=== PATIENT | female | born 1955 | race Caucasian/White ===

== ENCOUNTER 2019-12-13 11:10 | Inpatient (IN) | payer MEDICARE, OTHER ==
[~2019-12-13] VITALS: Ht 157.5 cm; Wt 65.3 kg
--- OUTSIDE RECORDS SUMMARY | ~2019-12-13 | XMS | Encounter Summary ---
Demographics + + + | Address | [address] | | | [place] [address] | + + + | Home Phone | | + + + | Preferred Language | Unknown | + + + | Marital Status | | + + + | Quaker Affiliation | Unknown | + + + | Race | Unknown | + + + | Ethnic Group | Unknown | + + + Author + + + | Author | [facility] | | | and [place] | + + + | Organization | [facility] | | | and [place] | + + + | Address | Unknown | + + + | Phone | Unavailable | + + + Support + + + + + | Name | Relationship | Address | Phone | + + + + + | Maria E Kong | ECON | [address] | | | | | [place] , [place] | | | | | [address] | | + + + + + | Macario Kong | ECON | [address] | | | | | [place] [address] | | + + + + + Care Team Providers + +------+ + | Care Director Of Sustainable Design Name | Role | Phone | + +------+ + | No, Physician | PCP | Unavailable | + +------+ + Reason for Visit + + + | Reason | Comments | + + + | Follow-up | | + + + Self-referral (Routine) +--------+--------+ + + + + | Status | Reason | Specialty | Diagnoses / | Referred By | Referred To | | | | | Procedures | Contact | Contact | +--------+--------+ + + + + | Closed | | Audiology | Diagnoses | | Judy, | | | | | month | | [facility] Didi | | | | | follow | | [facility] [address] | | | | | up/pt/Regenc | | [address] | | | | | e/no PCP | | [address] | | | | | Procedures | | [place] | | | | | OFFICE VISIT | | [address] Phone: | | | | | REGULAR | | [phone] | | | | | | | Fax: | | | | | | | [phone] | +--------+--------+ + + + + Encounter Details +--------+---------+ + + + | Date | Type | Department | Care Team | Description | +--------+---------+ + + + | 04/26/ | Office | [facility] | Didi Kim MS | Mixed hearing loss, | | 2015 | Visit | AUDIOLOGY AND | [facility] [address] | unilateral (Primary | | | | [facility] | [address] | Dx); Sensorineural | | | | [address] | [place] [address] | hearing loss, | | | | [address] [facility] | [phone] | unilateral | | | | [place] [address] | | | | | | [phone] | | | +--------+---------+ + + + Social History + +-------+ +--------+------+ | Tobacco Use | Types | Packs/Day | Years | Date | | | | | Used | | + +-------+ +--------+------+ | Never Smoker | | | | | + +-------+ +--------+------+ + + +---------+ + | Alcohol Use | Drinks/Week | oz/Week | Comments | + + +---------+ + | Not Asked | 0 Standard drinks | 0.0 | | | | or equivalent | | | + + +---------+ + + + + | Sex Assigned at | Date Recorded | | | | + + + | Not on file | | + + + + + + + | Job Start Date | Occupation | Industry | + + + + | Not on file | Not on file | Not on file | + + + + + + + + | Travel History | Travel Start | Travel End | + + + + + + | No recent travel history available. | + + documented as of this encounter Progress Notes JudyDidi CCC-A - 04/26/2015 3:10 PM PDTReferring Provider: Valentina Physician Lenny Results of Hearing Test: Right ear--Pure tone air and bone conduction testing showed a 35-4 5dB threshold at 250Hz through 8KHz with 10-25dB uyw-mhfc-llbn at 250Hz through 4KHz. Left ear --Pure tone air and bone conduction testing showed a 50-85dB threshold at 250H z through 8KHz. Speech Recognition Thresholds were 30dB in the right ear and 60dB in the left ear. Speech Discrimination Scores were 100% in right ear and 56% in the left ear. Tympanometry showed normal type A tracing in both ears. Impression and Recommendation: A mixed hearing loss in the right ear and a sensory-neural hearing loss in the left ear. Follow-up care with , Sr. Thank you. documented in thi s encounter Plan of Treatment Not on filedocumented as of this encounter Procedures + +--------+ + + + | Procedure Name | Priori | Date/Time | Associated Diagnosis | Comments | | | ty | | | | + +--------+ + + + | DIAGNOSTIC REPORT - | | 04/26/2015 | | | | EXTERNAL SCAN | | 12:00 AM | | | | | | PDT | | | + +--------+ + + + documented in this encounter Visit Diagnoses + + | Diagnosis | + + | Mixed hearing loss, unilateral - Primary | + + | Sensorineural hearing loss, unilateral | + + documented in this encounter"
--- OUTSIDE RECORDS SUMMARY | ~2019-12-13 | XMS | Encounter Summary ---
Demographics + + + | Address | [address] | | | [place] [address] | + + + | Home Phone | | + + + | Preferred Language | Unknown | + + + | Marital Status | | + + + | Evangelical Affiliation | Unknown | + + + | Race | Unknown | + + + | Ethnic Group | Unknown | + + + Author + + + | Author | [facility] | | | and [place] | + + + | Organization | [facility] | | [...] , [place] | | | | | [address] | | + + + + + | Macario Kong | ECON | [address] | | | | | , [place] [address] | | + + + + + Care Team Providers + +------+ + | Care Animal Sticker Name | Role | Phone | + +------+ + | No, Physician | PCP | Unavailable | + +------+ + Encounter Details +--------+ + + + + | Date | Type | Department | Care Team | Description | +--------+ + + + + | 03/23/ | Abstract | [facility] [place] | Rahul Crews MD | | | 2015 | | OTOLARYNGOLOGY [address] | [address] [place] | | | | | [address] | [address] [place], | | | | | [place], [place] | [place] [address] | | | | | [address] | [phone] | | | | | [phone] | | | +--------+ + + + + Social History + +-------+ [...] + + documented as of this encounter Plan of Treatment Not on filedocumented as of this encounter Visit Diagnoses Not on filedocumented in this encounter"
--- OUTSIDE RECORDS SUMMARY | ~2019-12-13 | XMS | Encounter Summary ---
Demographics + + + | Address | [address] | | | [place] [address] | + + + | Home Phone | | + + + | Preferred Language | Unknown | + + + | Marital Status | | + + + | Taoist Affiliation | Unknown | + + + | Race | Unknown | + + + | Ethnic Group | Unknown | + + + Author + + + | Author | [facility] | | | and [place] | + + + | Organization | [facility] | | | and [...] [address] | | | | | [place] | | | | | [address] | | + + + + + | Macario Kong | ECON | [address] | | | | | [place] [address] | | + + + + + Care Team Providers + +------+ + | Care Tandem Operator Name | Role | Phone | + +------+ + | No, Physician | PCP | Unavailable | + +------+ + Reason for Visit + + + | Reason | Comments | + + + | Medication Refill | | + + + Encounter Details +--------+--------+ + + + | Date | Type | Department | Care Team | Description | +--------+--------+ + + + | 12/05/ | Refill | [facility] [place] | Rahul Crews MD | Medication Refill | | 2016 | | OTOLARYNGOLOGY [address] | [address] [facility] | | | | | [address] [facility] [address] | [address] [place], | | | | | [place] | [place] [address] | | | | | [address] | [phone] | | | | | [phone] | | | +--------+--------+ + + + Social History + +-------+ [...]
--- OUTSIDE RECORDS SUMMARY | ~2019-12-13 | XMS | Encounter Summary ---
Demographics + + + | Address | [address] | | | [place] [address] | + + + | Home Phone | | + + + | Preferred Language | Unknown | + + + | Marital Status | | + + + | Quaker Affiliation | Unknown | + + + | Race | Unknown | + + + | Ethnic Group | Unknown | + + + Author + + + | Author | [facility] | | | and [place] | + + + | Organization | [facility] | | [...] [place] | | | | | [address] | | + + + + + | Macario Kong | ECON | [address] | | | | | [place] [address] | | + + + + + Care Team Providers + +------+ + | Care Typing Checker Name | Role | Phone | + [...] Description | +--------+--------+ + + + | 11/19/ | Refill | [facility] [place] | Rahul Crews MD | Medication Refill | | 2015 | | OTOLARYNGOLOGY [address] | [address] [facility] | | | | | [address] [facility] [address] | [address] [place] [place], | | | | | [place] | [place] [address] | | | | | [address] | [phone] | | | | | [phone] | | | +--------+--------+ + + + [...]
--- OUTSIDE RECORDS SUMMARY | ~2019-12-13 | XMS | Encounter Summary ---
Demographics + + + | Address | [address] | | | [place] [address] | + + + | Home Phone | | + + + | Preferred Language | Unknown | + + + | Marital Status | | + + + | Hindu Affiliation | Unknown | + + + | Race | Unknown | + + + | Ethnic Group | Unknown | + + + Author + + + | Author | [facility] | | | and [place] | + + + | Organization | [facility] | | | and [place] | + [...] , [place] | | | | | [address] | | + + + + + | Macario Kong | ECON | [address] | | | | | , [place] [address] | | + + + + + Care Team Providers + +------+ + | Care Junior Designer Name | Role | Phone | + [...] [place], | | | | | [place], [place] | [place] [address] | | | | | [address] | [phone] | | | | | [phone] | | | +--------+ + + + [...]
--- OUTSIDE RECORDS SUMMARY | ~2019-12-13 | XMS | Encounter Summary ---
Demographics + + + | Address | [address] | | | [place] [address] | + + + | Home Phone | | + + + | Preferred Language | Unknown | + + + | Marital Status | | + + + | Catholic Affiliation | Unknown | + + + | Race | Unknown | + + + | Ethnic Group | Unknown | + + + Author + + + | Author | [facility] | | | and [place] | + + + | Organization | [facility] | | | [...] , [place] | | | | | [address] | | + + + + + | Macario Kong | ECON | [address] | | | | | [place] [address] | | + + + + + Care Team Providers + +------+ + | Care Veneer Clipper Helper Name | Role | Phone | + +------+ + | No, Physician | PCP | Unavailable | + +------+ + Reason for Visit + + + | Reason | Comments | + + + | Follow-up | 1 month meniere's | + + + Self-referral (Routine) +--------+--------+ + + + + | Status | Reason | Specialty | Diagnoses / | Referred By | Referred To | | | | | Procedures | Contact | Contact | +--------+--------+ + + + + | Closed | | Otolaryngolog | Diagnoses | | Rahul Mares | | | | y | In St | | EMD [address] | | | | | [facility] | | [address] | | | | | for | | [address] | | | | | Vertigo/daug | | [place], | | | | | hter/[place]BS/no | | [place] [address] | | | | | pcp/Is | | Phone: | | | | | choosing to | | [phone] | | | | | come back | | Fax: | | | | | for | | [phone] | | | | | audiology | | | | | | | since she's | | | | | | | trying to be | | | | | | | seen NOLAN/ | | | | | | | Will call | | | | | | | back with | | | | | | | ins info | | | | | | | Procedures | | | | | | | NEW PATIENT | | | +--------+--------+ + + + + Encounter Details +--------+---------+ + + + | Date | Type | Department | Care Team | Description | +--------+---------+ + + + | 04/26/ | Office | [facility] | Rahul Mares MD | Meniere's disease, | | 2014 | Visit | OTOLARYNGOLOGY [address] | [address] [place] | unspecified (Primary | | | | [address] | [address] [place], | Dx) | | | | [place] | [place] [address] | | | | | [address] | [phone] | | | | | [phone] | | | +--------+---------+ + + + [...] + + documented as of this encounter Last Filed Vital Signs + + + + + | Vital Sign | Reading | Time Taken | Comments | + + + + + | Blood Pressure | - | - | | + + + + + | Pulse | 86 | 04/26/2015 2:52 PM | | | | | PDT | | + + + + + | Temperature | - | - | | + + + + + | Respiratory Rate | 16 | 04/26/2015 2:52 PM | | | | | PDT | | + + + + + | Oxygen Saturation | 95% | 04/26/2015 2:52 PM | | | | | PDT | | + + + + + | Inhaled Oxygen | - | - | | | Concentration | | | | + + + + + | Weight | 88.5 kg (195 lb) | 04/26/2015 2:52 PM | | | | | PDT | | + + + + + | Height | 160 cm (5' 3") | 04/26/2015 2:52 PM | | | | | PDT | | + + + + + | Body Mass Index | 34.54 | 04/26/2015 2:52 PM | | | | | PDT | | + + + + + documented in this encounter Progress Notes Rahul Mares MD - 04/26/2015 3:22 PM PDT [facility] OTOLARYNGOLOGY [address] [place] [id number] OFFICE NOTE RAHUL MARES MD Patient: TRACY KONG Admitting: MR #: [id number] LOC: PT TYPE: Adm Date: 04/26/2015 : 1955 DATE OF VISIT: 04/26/2015. The patient was seen a month ago. She has a history of Meniere's disease in the left ear and recently started to have the fullness and pressure in the right ear. With this she is having a lot of spells of vertigo. The patient builds up increased pressure, and then the patient gets quite nauseated and has a severe spinning. She ended up in the emergency nena m twice over the last month. She is staying away from the caffeine. She is taking the Dya zide regularly. She occasionally uses a meclizine. PHYSICAL EXAMINATION: GENERAL: Shows an alert 60-year-old female patient. She is communicating well. Her voic e quality is good. HEENT: Skin of the face, nose and ears all appears smooth and healthy. Parotid, submandib ular gland areas appear normal and are smooth. Ear canals are open. They are clear. The drums were clear on both sides. Nasal passages: No obstruction, no mass or lesion noted. Floor of the mouth, buccal mucosa, hard palate, teeth, lips, gums are healthy. No mass se en in the oropharynx, and posterior pharyngeal wall is smooth. Tongue and soft palate are s mooth and move symmetrically. NECK: There are no masses or lymphadenopathy. Thyroid area is smooth. Trachea midline. Tympanograms were normal A-shaped tympanograms. The patient' s speech corporate receptionist threshold is 30 dB in the right ear and 60 dB in the left ear. Speech d iscrimination scores 100 percent in the right ear and 56 percent in the left ear. IMPRESSION: Meniere's disease. PLAN: The patient will have a prescription of Xanax of half a tablet of 0.25 mg twice a d ay and then 1 at bedtime to see if this will calm down the irritation. The attacks seem to be worse when she is under a lot of stress, and she may have to change the stress factors in her life. She will be seen again in 1 month's time. RAHUL MARES MD Dictated by RAHUL MARES MD 04/26/2015 15:22:08 Transcribed on 04/26/2015 16:05:37 by gladis job# [id number] Confirmation #: [id number] signed by Rahul Mares MD at 04/26/2015 4:36 PM Rahul Colón MD - 04/26/2015 3:19 PM Fareed dictation # [id number] signed by Rahul Mares MD at 04/26/2015 3:24 PM PDTdocumented in th is encounter Plan of Treatment Not on filedocumented as of this encounter Visit Diagnoses + + | Diagnosis | + + | Meniere's disease, unspecified - Primary | + + documented in this encounter
--- OUTSIDE RECORDS SUMMARY | ~2019-12-13 | XMS | Encounter Summary ---
Demographics + + + | Address | [address] | | | [place] [address] | + + + | Home Phone | | + + + | Preferred Language | Unknown | + + + | Marital Status | | + + + | Spiritism Affiliation | Unknown | + + + | Race | Unknown | + + + | Ethnic Group | Unknown | + + + Author + + + | Author | [facility] | | | and [place] | + + + | Organization | [facility] | | [...] [place] | | | | | [address] | | + + + + + | Macario Kong | ECON | [address] | | | | | [place] [address] | | + + + + + Care Team Providers + +------+ + | Care Fan Engine Engineer Name | Role | Phone | + +------+ + | No, Physician | PCP | Unavailable | + +------+ + Reason for Visit + + + | Reason | Comments | + + + | New Patient | vertigo, nausea,dizzy,has been in the hospital 3 times | + + + Self-referral (Routine) +--------+--------+ + + + + | Status | Reason | Specialty | Diagnoses / | Referred By | Referred To | | | | | Procedures | Contact | Contact | +--------+--------+ + + + + | Closed | | Otolaryngolog | Diagnoses | | Rahul Mares | | | | y | In St | | [address], [address] | | | | | [facility] | | [address] | | | | | for | | [address] | | | | | Vertigo/daug | | [place], | | | | | hter/[place]/no | | [place] [address] | | | | | pcp/Is | | Phone: | | | | | choosing to | | [phone] | | | | | come back | | Fax: | | | | | for | | [phone] | | | | | audiology | [...] Description | +--------+---------+ + + + | 03/23/ | Office | [facility] | Rahul Mares MD | Meniere's disease, | | 2014 | Visit | OTOLARYNGOLOGY [address] | [address] | unspecified (Primary | | | | [address] | [address] [place], | Dx) | | | | [place] | [place] [address] | | | | | [address] | [phone] | | | | | [phone] | | | +--------+---------+ + + + [...] + + + + | Pulse | 75 | 03/23/2015 3:42 PM | | | | | PDT | | + + + + + | Temperature | - | - | | + + + + + | Respiratory Rate | 14 | 03/23/2015 3:42 PM | | | | | PDT | | + + + + + | Oxygen Saturation | 98% | 03/23/2015 3:42 PM | | | | | PDT | | + + + + + | Inhaled Oxygen | - | - | | | Concentration | | | | + + + + + | Weight | 88.5 kg (195 lb) | 03/23/2015 3:42 PM | | | | | PDT | | + + + + + | Height | 160 cm (5' 3") | 03/23/2015 3:42 PM | | | | | PDT | | + + + + + | Body Mass Index | 34.54 | 03/23/2015 3:42 PM | | | | | PDT | | + + + + + documented in this encounter Progress Notes Rahul Mares MD - 03/23/2015 4:04 PM PDT [facility] [place] OTOLARYNGOLOGY [address] [facility] [id number] OFFICE NOTE RAHUL MARES MD Patient: TRACY KONG Admitting: MR #: [id number] LOC: PT TYPE: Adm Date: 03/23/2015 : 1955 NEW PATIENT VISIT DATE OF VISIT: 03/23/2015 SUBJECTIVE: the patient has a history of Meniere's disease in the left ear. For about a month now she has had a lot of pressure in the right ear. She has had at least 3 or 4 epis odes of severe dizziness. She ends up in the emergency room. She is hearing poorly from t he right ear. Not much pressure in the left ear any more and the hearing aid seems to be working okay, having no other ENT complaints at the current time. EXAMINATION: GENERAL: Shows an alert 60-year-old female patient. She is ambulating well. She is comm unicating well. Her voice quality is good. HEENT: Skin of the face, nose, and ears were s mooth and healthy. Parotid, submandibular gland areas are smooth. Facial movement is symm etrical. Ear canals are open. They are clear. Looking with the microscope, there is no f luid behind the drum on either side. No retraction and no abnormalities are seen. Nasal p assages: No obstruction, no mass or lesion present. Floor of the mouth, buccal mucosa, h edilia palate, teeth, lips, gums are healthy. No mass seen in the oropharynx, and posterior p haryngeal wall is smooth. Tongue and soft palate are smooth and move symmetrically. No ny stagmus of the eyes are noted. NECK: smooth. There are no masses or lymphadenopathy. Thyroid gland is smooth and trach ea is midline. IMPRESSION: Meniere's disease of the right ear. PLAN: The patient does not use but minimal amount of caffeine. She will stay away from t his. She will tend to stay on the low-salt diet. She was given a prescription of Dyazide 3 7.5 mg to take 1 tablet daily. She will follow up with ENT in 1 month's time. A pamphlet o n Meniere's disease was given to the patient. She will also have an audiogram when she re turns in 1 month's time. RAHUL MARES MD Dictated by RAHUL MARES MD 03/23/2015 16:04:35 Transcribed on 03/24/2015 04:29:00 by kwasi job# [id number] Confirmation #: [id number] signed by Rahul Mares MD at 03/24/2015 7:56 AM PDT Rahul Mares MD - 03/23/2015 4:01 PM PDTSee dictation # [id number] signed by Rahul Mares MD at 03/23/2015 4:05 PM PDTdocumented in th is encounter Plan of Treatment Not on filedocumented as of this encounter Visit Diagnoses + + | Diagnosis | + + | Meniere's disease, unspecified - Primary | + + documented in this encounter
--- OUTSIDE RECORDS SUMMARY | ~2019-12-13 | XMS | Encounter Summary ---
Demographics + + + | Address | [address] | | | [place] [address] | + + + | Home Phone | | + + + | Preferred Language | Unknown | + + + | Marital Status | | + + + | Yazidi Affiliation | Unknown | + + + | Race | Unknown | + + + | Ethnic Group | Unknown | + + + Author + + + | Author | [facility] | | | and [place] | + + + | Organization | [facility] | | [...] , [place] | | | | | [address] | | + + + + + | aMcario Kong | ECON | [address] | | | | | [place] [address] | | + + + + + Care Team Providers + +------+ + | Care Community Arts Centre Manager Name | Role | Phone | + [...] | | | | follow | | [facility] [address] | | | | | up/pt/Regenc | | [address] | | | | | e/no PCP | | [address] | | | | | Procedures | | [place] | | | | | OFFICE VISIT | | [address] Phone: | | | | | REGULAR | | [phone] | | | | | | | Fax: | | | | | | | [phone] | +--------+--------+ + + + + Encounter Details +--------+---------+ + + + | Date | Type | Department | Care Team | Description | +--------+---------+ + + + | 04/26/ | Office | [facility] | Didi Kim MS | Mixed hearing loss, | | 2015 | Visit | AUDIOLOGY AND | [facility]-A [address] | unilateral (Primary | | | | [facility] | [address] | Dx); Sensorineural | | | | [address] | [place] [address] | hearing loss, | | | | [address] [facility] | [phone] | unilateral | | | | [place] [address] | | | | | | [phone] | | | +--------+---------+ + + + [...] threshold at 250Hz through 8KHz with 10-25dB [id number]-[id number] at 250Hz through 4KHz. Left ear --Pure [...]
--- OUTSIDE RECORDS SUMMARY | ~2019-12-13 | XMS | Encounter Summary ---
Demographics + + + | Address | [address] | | | [place] [address] | + + + | Home Phone | | + + + | Preferred Language | Unknown | + + + | Marital Status | | + + + | Mormonism Affiliation | Unknown | + + + | Race | Unknown | + + + | Ethnic Group | Unknown | + + + Author + + + | Author | [facility] | | | and [place] | + + + | Organization | [facility] | | | [...] [place] | | | | | [address] | | + + + + + | Macario Kong | ECON | [address] | | | | | [place] [address] | | + + + + + Care Team Providers + +------+ + | Care Double Back Operator Name | Role | Phone | [...] Description | +--------+--------+ + + + | 12/22/ | Refill | [facility] [place] | Rahul Crews MD | Medication Refill | | 2019 | | OTOLARYNGOLOGY [address] | [address] [place] | | | | | [address] | [address] [place], | | | | | [place], [place] | [place] [address] | | | | | [address] | [phone] | | | | | [phone] | | | +--------+--------+ + + + [...] | + + | Meniere's disease, unspecified laterality - Primary | + + documented in this encounter"
--- OUTSIDE RECORDS SUMMARY | ~2019-12-13 | XMS | Encounter Summary ---
Demographics + + + | Address | [address] | | | [place] [address] | + + + | Home Phone | | + + + | Preferred Language | Unknown | + + + | Marital Status | | + + + | Jehovah'S Witness Affiliation | Unknown | + + + | Race | Unknown | + + + | Ethnic Group | Unknown | + + + Author + + + | Author | [facility] | | | and [place] | + + + | Organization | [facility] | | | and [...] , [place] | | | | | [address] | | + + + + + | Macario Kong | ECON | [address] | | | | | [place] [address] | | + + + + + Care Team Providers + +------+ + | Care Spiral Machine Operator Name | Role | Phone | [...] | | | hter/[place]/no | | [place] [address] | | | | | pcp/Is | | Phone: | | | | | choosing to | | [phone] | | | | | come back | | Fax: | | | | | for | | [phone] | | | | | audiology | [...] + + | 04/26/ | Office | [facility] | Rahul Mares MD | Meniere's disease, | | 2014 | Visit | OTOLARYNGOLOGY [address] | [address] [place] | unspecified (Primary | | | | [address] | [address], | Dx) | | | | [place] | [place] [address] | | | | | [address] | [phone] | | | | | [phone] | | | +--------+---------+ + + + [...] MD - 04/26/2015 3:22 PM PDT [facility] OTOLARYNGOLOGY [address] [place] [id number] OFFICE NOTE RAHUL MARES MD Patient: TRACY KONG Admitting: MR #: [id number] LOC: PT TYPE: Adm Date: 04/26/2015 : [...] normal A-shaped tympanograms. The patient' s speech fire equipment inspector threshold is 30 dB in the right [...] Transcribed on 04/26/2015 16:05:37 by gladis job# [id number] Confirmation #: [id number] signed by Rahul Mares MD at 04/26/2015 4:36 PM Rahul Colón MD - 04/26/2015 3:19 PM Fareed dictation # [id number] signed by Rahul Mares MD at 04/26/2015 3:24 PM PDTdocumented in th is encounter Plan of Treatment Not on filedocumented as of this encounter Visit Diagnoses + + | Diagnosis | + + | Meniere's disease, unspecified - Primary | + + documented in this encounter
--- OUTSIDE RECORDS SUMMARY | ~2019-12-13 | XMS | Encounter Summary ---
Demographics + + + | Address | [address] | | | [place] [address] | + + + | Home Phone [...] , [place] | | | | | [address] | | + + + + + | Macario Kong | ECON | [address] | | | | | [place] [address] | | + + + + + Care Team Providers + +------+ + | Care Labor Relations Consultant Name | Role | Phone | + [...] | | | hter/[place]/no | | [place] [address] | | | | | pcp/Is | | Phone: | | | | | choosing to | | [phone] | | | | | come back | | Fax: | | | | | for | | [phone] | | | | | audiology | [...] + + | 04/26/ | Office | [facility] | Rahul Mares MD | Meniere's disease, | | 2014 | Visit | OTOLARYNGOLOGY [address] | [address] [place] | unspecified (Primary | | | | [address] | [address], | Dx) | | | | [place] | [place] [address] | | | | | [address] | [phone] | | | | | [phone] | | | +--------+---------+ + + + [...] MD - 04/26/2015 3:22 PM PDT [facility] OTOLARYNGOLOGY [address] [place] [id number] OFFICE NOTE RAHUL MARES MD Patient: TRACY KONG Admitting: MR #: [id number] LOC: PT TYPE: Adm Date: 04/26/2015 : [...] normal A-shaped tympanograms. The patient' s speech operator receptionist threshold is 30 dB in the [...] Transcribed on 04/26/2015 16:05:37 by gladis job# [id number] Confirmation #: [id number] signed by Rahul Mares MD at 04/26/2015 4:36 PM Rahul Colón MD - 04/26/2015 3:19 PM Fareed dictation # [id number] signed by Rahul Mares MD at 04/26/2015 3:24 PM PDTdocumented in th is encounter Plan of Treatment Not on filedocumented as of this encounter Visit Diagnoses + + | Diagnosis | + + | Meniere's disease, unspecified - Primary | + + documented in this encounter
--- OUTSIDE RECORDS SUMMARY | ~2019-12-13 | XMS | Encounter Summary ---
Demographics + + + | Address | [address] | | | [place] [address] | + + + | Home Phone | | + + + | Preferred Language | Unknown | + + + | Marital Status | | + + + | Jew Affiliation | Unknown | + + + [...] [place] | | | | | [address] | | + + + + + | Macario Kong | ECON | [address] | | | | | [place] [address] | | + + + + + Care Team Providers + +------+ + | Care Mechanical Product Engineer Name | Role | Phone | [...] | | | hter/[place]/no | | [place] [address] | | | | | pcp/Is | | Phone: | | | | | choosing to | | [phone] | | | | | come back | | Fax: | | | | | for | | [phone] | | | | | audiology | [...] + + | 03/23/ | Office | [facility] | Rahul Mares MD | Meniere's disease, | | 2014 | Visit | OTOLARYNGOLOGY [address] | [address] [place] | unspecified (Primary | | | | [address] | [address], | Dx) | | | | [place] | [place] [address] | | | | | [address] | [phone] | | | | | [phone] | | | +--------+---------+ + + + [...] - 03/23/2015 4:04 PM PDT [facility] [place] OT[facility]OLOGY [address] [facility] 939[address] OFFICE NOTE RAHUL MARES MD Patient: TRACY KONG Admitting: MR #: [id number] LOC: PT TYPE: Adm Date: 03/23/2015 : [...] Transcribed on 03/24/2015 04:29:00 by kwasi job# [id number] Confirmation #: [id number] signed by Rahul Mares MD at 03/24/2015 7:56 AM PDT Rahul Mares MD - 03/23/2015 4:01 PM PDTSee dictation # [id number] signed by Rahul Mares MD at 03/23/2015 4:05 PM PDTdocumented in th is encounter Plan of Treatment Not on filedocumented as of this encounter Visit Diagnoses + + | Diagnosis | + + | Meniere's disease, unspecified - Primary | + + documented in this encounter
--- OUTSIDE RECORDS SUMMARY | ~2019-12-13 | XMS | Encounter Summary ---
Demographics + + + | Address | [address] | | | [place] [address] | + + + | Home Phone | | + + + | Preferred Language | Unknown | + + + | Marital Status | | + + + | Congregation Affiliation | Unknown | + + + | Race | Unknown | + + + | Ethnic Group | Unknown | + + + Author + + + | Author | [facility] | | | and [place] | + + + | Organization | [facility] | | | and [...] [place] | | | | | [address] | | + + + + + | Macario Kong | ECON | [address] | | | | | [place] [address] | | + + + + + Care Team Providers + +------+ + | Care Him Specialists Name | Role | Phone | + [...] [place], | | | | | [place], [place] | [place] [address] | | | | | [address] | [phone] | | | | | [phone] | | | +--------+--------+ + + + [...]
--- OUTSIDE RECORDS SUMMARY | ~2019-12-13 | XMS | Encounter Summary ---
Demographics + + + | Address | [address] | | | [place] [address] | + + + | Home Phone | | + + + | Preferred Language | Unknown | + + + | Marital Status | | + + + | Anabaptist Affiliation | Unknown | + + + | Race | Unknown | + + + | Ethnic Group | Unknown | + + + Author + + + | Author | [facility] | | | and [place] | + + + | Organization | [facility] | | | and [...] , [place] | | | | | [address] | | + + + + + | Macario Kong | ECON | [address] | | | | | [place] [address] | | + + + + + Care Team Providers + +------+ + | Care Roping Tender Name | Role | Phone | + +------+ + | No, Physician | PCP | Unavailable | + +------+ + Encounter Details +--------+ + + + + | Date | Type | Department | Care Team | Description | +--------+ + + + + | 12/30/ | Orders Only | [facility] [place] | Raeann Haas, | Meniere's disease, | | 2018 | | OTOLARYNGOLOGY [address] | Supervisor Delivery Department | unspecified | | | | [address] | | laterality (Primary | | | | [place], [place] | | Dx) | | | | [address] | | | | | | [phone] | | | +--------+ + + + [...]
--- OUTSIDE RECORDS SUMMARY | ~2019-12-13 | XMS | Encounter Summary ---
Demographics + + + | Address | [address] | | | [place] [address] | + + + | Home Phone | | + + + | Preferred Language | Unknown | + + + | Marital Status | | + + + | Confucianist Affiliation | Unknown | + + + [...] [place] | | | | | [address] | | + + + + + | Macario Kong | ECON | [address] | | | | | [place] [address] | | + + + + + Care Team Providers + +------+ + | Care Animal Care Specialist Name | Role | Phone | + [...] OTOLARYNGOLOGY [address] | [address] [facility] | | | | | [address] [facility] [address] | [address], | | | | | [place] | [place] [address] | | | | | [address] | [phone] | | | | | [phone] | | | +--------+--------+ + + + [...]
--- OUTSIDE RECORDS SUMMARY | ~2019-12-13 | XMS | Encounter Summary ---
Demographics + + + | Address | [address] | | | [place] [address] | + + + | Home Phone | | + + + | Preferred Language | Unknown | + + + | Marital Status | | + + + | Yarsani Affiliation | Unknown | + + + | Race | Unknown | + + + | Ethnic Group | Unknown | + + + Author + + + | Author | [facility] | | | and [place] | + + + | Organization | [facility] | | | [...] [place] | | | | | [address] | | + + + + + | Macario Kong | ECON | [address] | | | | | [place] [address] | | + + + + + Care Team Providers + +------+ + | Care Vacuum Frame Operator Name | Role | Phone | [...] Description | +--------+--------+ + + + | 12/30/ | Refill | [facility] [place] | Rhaul Crews MD | Medication Refill | | 2017 | | OTOLARYNGOLOGY [address] | [address] [place] | | | | | [address] [facility] [address] | [address], | | | | | [place] | [place] [address] | | | | | [address] | [phone] | | | | | [phone] | | | +--------+--------+ + + + [...]
--- OUTSIDE RECORDS SUMMARY | ~2019-12-13 | XMS | Clinical Summary ---
Demographics + + + | Address | [address] | | | [place] [address] | + + + | Home Phone | | + + + | Preferred Language | Unknown | + + + | Marital Status | | + + + | Jew Affiliation | Unknown | + + + | Race | Unknown | + + + | Ethnic Group | Unknown | + + + Author + + + | Author | [facility] | | | and [place] | + + + | Organization | [facility] | | | [...] , [place] | | | | | [address] | | + + + + + | Macario Kong | ECON | [address] | | | | | , [place] [address] | | + + + + + Care Team Providers + +------+ + | Care Platen Builder Up Name | Role | Phone | + +------+ + | No, Physician | PCP | Unavailable | + +------+ + Allergies + + + + + + | Active Allergy | Reactions | Severity | Noted | Comments | | | | | Date | | + + + + + + | Diazepam | | | 04/26/20 | | | | | | 15 | | + + + + + + Medications + + + +---------+------+------+-------+ | Medication | Sig | Dispensed | Refills | Star | End | Statu | | | | | | t | Date | s | | | | | | Date | | | + + + +---------+------+------+-------+ | meclizine | Take 12.5 mg by | | 0 | | | Activ | | (ANTIVERT) 12.5 mg | mouth 3 times daily | | | | | e | | tablet | as needed. | | | | | | + + + +---------+------+------+-------+ | | TAKE ONE CAPSULE BY | 90 | 3 | 05/0 | | Activ | | triamterene-hydrochl | MOUTH EVERY DAY IN | capsule | | 8/20 | | e | | orothiazide | THE MORNING | | | 19 | | | | (DYAZIDE) 37.5-25 MG | | | | | | | | per | | | | | | | | capsuleIndications: | | | | | | | | Meniere's disease, | | | | | | | | unspecified | | | | | | | | laterality | | | | | | | + + + +---------+------+------+-------+ Active Problems + + + | Problem | Noted Date | + + + | Meniere disease | 03/23/2015 | + + + Social History + +-------+ [...] recent travel history available. | + + Last Filed Vital Signs + + + [...] Weight | 88.5 kg (195 lb) | 05/25/2015 3:55 PM | | | | | PDT | | + + + + + | Height | 160 cm (5' 3") | 05/25/2015 3:55 PM | | | | | PDT | | + + + + + | Body Mass Index | 34.54 | 05/25/2015 3:55 PM | | | | | PDT | | + + + + + Plan of Treatment + + + + + | Health Maintenance | Due Date | Last Done | Comments | + + + + + | Hepatitis C | | | | | Screening | 3 | | | + + + + + | Vaccine: | | | | | Dtap/Tdap/Td (1 - | 4 | | | | Tdap) | | | | + + + + + | Colorectal Cancer | | | | | Screening | 3 | | | | (Colonoscopy) | | | | + + + + + | Vaccine: Zoster (1 | | | | | of 2) | 3 | | | + + + + + | Breast Cancer | | | | | Screening | 8 | | | + + + + + | Adult Annual | | | | | Wellness Visit | 5 | | | + + + + + | Vaccine: | | | | | Pneumococcal 65+ (1 | 8 | | | | of 2 - PCV13) | | | | + + + + + | Vaccine: Influenza | | | | | (Season Ended) | 0 | | | + + + + + Results Not on filefrom Last 3 Months Insurance +---------+--------+ +--------+ +---------+------+ | Payer | Benefi | Subscriber | Effect | Phone | Address | Type | | | t Plan | ID | michelle | | | | | | / | | Dates | | | | | | Group | | | | | | +---------+--------+ +--------+ +---------+------+ | [place] | [place] | [id number] | 08/18/19 | [phone] | | PPO | | | E BCBS | 7 | 15-Pre | 8 | | | | | [place] | | sent | | | | | | PPO | | | | | | +---------+--------+ +--------+ +---------+------+ + +--------+ +--------+ + + | Guarantor Name | Accoun | Relation to | Date | Phone | Billing Address | | | t Type | Patient | of | | | | | | | | | | + +--------+ +--------+ + + | KongFermín acosta | Person | Self [birth year] | [address] [employer]MER | | | al/Fam | | 1955 | [phone] | [place] [address] | | | juan | | | 2 (Home) | | + +--------+ +--------+ + + Advance Directives + + + + + | Type | Date Recorded | Patient | Explanation | | | | General Engineer | | + + + + + | Power of | | | | | Cardiothoracic Anesthesia Technician | | | | + + + + + | Advance | | | | | Directive | | | | + + + + +
--- OUTSIDE RECORDS SUMMARY | ~2019-12-13 | XMS | Encounter Summary ---
Demographics + + + | Address | [address] | | | [place] [address] | + + + | Home Phone | | + + + | Preferred Language | Unknown | + + + | Marital Status | | + + + | Mandaen Affiliation | Unknown | + + + | Race | Unknown | + + + | Ethnic Group | Unknown | + + + Author + + + | Author | [facility] | | | and [place] | + + + | Organization | [facility] | | | [...] [place] | | | | | [address] | | + + + + + | Macario Kong | ECON | [address] | | | | | [place] [address] | | + + + + + Care Team Providers + +------+ + | Care Marine Oiler Name | Role | Phone | + +------+ + | No, Physician | PCP | Unavailable | + +------+ + Reason for Visit + + + | Reason | Comments | + + + | Follow-up | 1 month ezio's,patient states that she is doing good | + + + Self-referral (Routine) +--------+--------+ [...] | | | hter/[place]/no | | [place] [address] | | | | | pcp/Is | | Phone: | | | | | choosing to | | [phone] | | | | | come back | | Fax: | | | | | for | | [phone] | | | | | audiology | [...] Description | +--------+---------+ + + + | 05/25/ | Office | [facility] | Rahul Mares MD | Active Meniere's | | 2014 | Visit | OTOLARYNGOLOGY [address] | [address] [place] | disease, unspecified | | | | [address] | [address] [place], | laterality (Primary | | | | [place], [place] | [place] [address] | Dx) | | | | [address] | [phone] | | | | | [phone] | | | +--------+---------+ + + + [...] + + + + | Pulse | - | - | | + + + + + | Temperature | - | - | | + + + + + | Respiratory Rate | - | - | | + + + + + | Oxygen Saturation | - | - | | + [...] encounter Progress Notes Rahul Mares MD - 05/25/2015 4:37 PM PDT [facility] OTOLARYNGOLOGY [address] [facility] [id number] OFFICE NOTE RAHUL MARES MD Patient: TRACY KONG Admitting: MR #: [id number] LOC: PT TYPE: Adm Date: 05/25/2015 : 1955 DATE OF VISIT: 05/25/2015. The patient is being followed for Meniere's disease. She was placed on Dyazide and stoppe d caffeine, it helped a bit, but not adequately, still having a lot of problems, particular ly with being off balance and feeling dizzy. She was started on a tiny dose of Xanax 0.25 mg 1/2 tablet morning and midday and then 1 at bedtime over the last month. She indicates that she has had no further problems with the pressure in her ears and her balance has been back to normal. She has been able to handle work well and feels that she has improved sig nificantly. PHYSICAL EXAMINATION: GENERAL: Shows a happy 60-year-old female patient who is doing quite well. HEENT: Skin of the face, nose, and ears all appear to be smooth and healthy. Parotid, otto bmandibular glands were smooth. Ear canals are open. They are clear. Drums appear clear, without any middle ear effusion. Balance and coordination appear to be well. The discussion was then carried out with the patient that she will continue on the combina tion of these medicines, stay away from high intake of salt and continue to stay away from caffeine. As long as everything is working well she will be seen again in 1 years' time, a t which time a repeat audiogram needs to be obtained. If increasing or further problems i n the meantime, she will recheck with ENT. RAHUL MARES MD Dictated by RAHUL MARES MD 05/25/2015 16:37:46 Transcribed on 05/26/2015 09:05:51 by [facility] job# [id number] Confirmation #: [id number] signed by Rahul Mares MD at 05/26/2015 9:47 AM Rahul Colón MD - 05/25/2015 4:34 PM LUCIESee dictation # [id number] signed by Rahul Mares MD at 05/25/2015 4:38 PM PDTdocumented in th is encounter Plan of Treatment Not on filedocumented as of this encounter Visit Diagnoses + + | Diagnosis | + + | Active Meniere's disease, unspecified laterality - Primary | + + documented in this encounter
--- OUTSIDE RECORDS SUMMARY | ~2019-12-13 | XMS | Encounter Summary ---
Demographics + + + | Address | [address] | | | [place] [address] | + + + | Home Phone | | + + + | Preferred Language | Unknown | + + + | Marital Status | | + + + | Caodaism Affiliation | Unknown | + + + | Race | Unknown | + + + | Ethnic Group | Unknown | + + + Author + + + | Author | [facility] | | | and [place] | + + + | Organization | [facility] | | | [...] , [place] | | | | | [address] | | + + + + + | Macario Kong | ECON | [address] | | | | | , [place] [address] | | + + + + + Care Team Providers + +------+ + | Care Campground Caretaker Name | Role | Phone | + [...] [place], | | | | | [place], [place] | [place] [address] | | | | | [address] | [phone] | | | | | [phone] | | | +--------+ + + + [...]
--- OUTSIDE RECORDS SUMMARY | ~2019-12-13 | XMS | Encounter Summary ---
Demographics + + + | Address | [address] | | | [place] [address] | + + + | Home Phone | | + + + | Preferred Language | Unknown | + + + | Marital Status | | + + + | Baptist Affiliation | Unknown | + + + | Race | Unknown | + + + | Ethnic Group | Unknown | + + + Author + + + | Author | [facility] | | | and [place] | + + + | Organization | [facility] | | | [...] , [place] | | | | | [address] | | + + + + + | Macario Kong | ECON | [address] | | | | | [place] [address] | | + + + + + Care Team Providers + +------+ + | Care Pipe Changer Name | Role | Phone | + +------+ + | No, Physician | PCP | Unavailable | + +------+ + Reason for Visit + + + | Reason | Comments | + + + | Appointment | | + + + Encounter Details +--------+--------+ + + + | Date | Type | Department | Care Team | Description | +--------+--------+ + + + | 12/24/ | Refill | [facility] [place] | Rahul Crews MD | Appointment | | 2017 | | OTOLARYNGOLOGY [address] | [address] [place] | | | | | [address] | [address] [place], | | | | | [place], [place] | [place] [address] | | | | | [address] | [phone] | | | | | [phone] | | | +--------+--------+ + + + [...]
--- OUTSIDE RECORDS SUMMARY | ~2019-12-13 | XMS | Encounter Summary ---
Demographics + + + | Address | [address] | | | [place] [address] | + + + | Home Phone | | + + + | Preferred Language | Unknown | + + + | Marital Status | | + + + | Congregational Affiliation | Unknown | + + + | Race | Unknown | + + + | Ethnic Group | Unknown | + + + Author + + + | Author | [facility] | | | and [place] | + + + | Organization | [facility] | | [...] , [place] | | | | | [address] | | + + + + + | Macario Kong | ECON | [address] | | | | | [place] [address] | | + + + + + Care Team Providers + +------+ + | Care Layaway Clerk Name | Role | Phone | + [...] | | | | follow | | [facility] [address] | | | | | up/pt/Regenc | | [address] | | | | | e/no PCP | | [address] | | | | | Procedures | | [place] | | | | | OFFICE VISIT | | [address] Phone: | | | | | REGULAR | | [phone] | | | | | | | Fax: | | | | | | | [phone] | +--------+--------+ + + + + Encounter Details +--------+---------+ + + + | Date | Type | Department | Care Team | Description | +--------+---------+ + + + | 04/26/ | Office | [facility] | Didi Kim MS | Mixed hearing loss, | | 2015 | Visit | AUDIOLOGY AND | [facility] [address] | unilateral (Primary | | | | [facility] | [address] | Dx); Sensorineural | | | | [address] | [place] [address] | hearing loss, | | | | [address] [facility] | [phone] | unilateral | | | | [place] [address] | | | | | | [phone] | | | +--------+---------+ + + + [...] threshold at 250Hz through 8KHz with 10-25dB zvf-yelz-nadd at 250Hz through 4KHz. Left ear --Pure [...]
--- OUTSIDE RECORDS SUMMARY | ~2019-12-13 | XMS | Encounter Summary ---
Demographics + + + | Address | [address] | | | [place] [address] | + + + | Home Phone | | + + + | Preferred Language | Unknown | + + + | Marital Status | | + + + | Tenriism Affiliation | Unknown | + + + | Race | Unknown | + + + | Ethnic Group | Unknown | + + + Author + + + | Author | [facility] | | | and [place] | + + + | Organization | [facility] | | | and [...] , [place] | | | | | [address] | | + + + + + | Macario Kong | ECON | [address] | | | | | [place] [address] | | + + + + + Care Team Providers + +------+ + | Care Geothermal Plant Manager Name | Role | Phone | [...] [place], | | | | | [place], [place] | [place] [address] | | | | | [address] | [phone] | | | | | [phone] | | | +--------+--------+ + + + [...]
--- OUTSIDE RECORDS SUMMARY | ~2019-12-13 | XMS | Encounter Summary ---
Demographics + + + | Address | [address] | | | [place] [address] | + + + | Home Phone | | + + + | Preferred Language | Unknown | + + + | Marital Status | | + + + | Baptist Affiliation | Unknown | + + + | Race | Unknown | + + + | Ethnic Group | Unknown | + + + Author + + + | Author | [facility] | | | and [place] | + + + | Organization | [facility] | | [...] [place] | | | | | [address] | | + + + + + | Macario Kong | ECON | [address] | | | | | [place] [address] | | + + + + + Care Team Providers + +------+ + | Care Rotary Rock Drilling Machine Operator Name | Role | Phone [...] | | | hter/[place]/no | | [place] [address] | | | | | pcp/Is | | Phone: | | | | | choosing to | | [phone] | | | | | come back | | Fax: | | | | | for | | [phone] | | | | | audiology | [...] + + | 03/23/ | Office | [facility] | Rahul Mares MD | Meniere's disease, | | 2014 | Visit | OTOLARYNGOLOGY [address] | [address] | unspecified (Primary | | | | [address] | [address], | Dx) | | | | [place] | [place] [address] | | | | | [address] | [phone] | | | | | [phone] | | | +--------+---------+ + + + [...] - 03/23/2015 4:04 PM PDT [facility] [place] OTOLARYNGOLOGY [address] [facility] [address] OFFICE NOTE RAHUL MARES MD Patient: TRACY KONG Admitting: MR #: [id number] LOC: PT TYPE: Adm Date: 03/23/2015 : [...] she re turns in 1 month's time. RAHLU MARES MD Dictated by RAHUL MARES MD 03/23/2015 16:04:35 Transcribed on 03/24/2015 04:29:00 by kwasi job# [id number] Confirmation #: [id number] signed by Rahul Mares MD at 03/24/2015 7:56 AM PDT Rahul Mares MD - 03/23/2015 4:01 PM PDTSee dictation # [id number] signed by Rahul Mares MD at 03/23/2015 4:05 PM PDTdocumented in th is encounter Plan of Treatment Not on filedocumented as of this encounter Visit Diagnoses + + | Diagnosis | + + | Meniere's disease, unspecified - Primary | + + documented in this encounter
--- OUTSIDE RECORDS SUMMARY | ~2019-12-13 | XMS | Encounter Summary ---
Demographics + + + | Address | [address] | | | [place] [address] | + + + | Home Phone | | + + + | Preferred Language | Unknown | + + + | Marital Status | | + + + | Rastafari Affiliation | Unknown | + + + | Race | Unknown | + + + | Ethnic Group | Unknown | + + + Author + + + | Author | [facility] | | | and [place] | + + + | Organization | [facility] | | | [...] [place] | | | | | [address] | | + + + + + | Macario Kong | ECON | [address] | | | | | [place] [address] | | + + + + + Care Team Providers + +------+ + | Care Parts Department Supervisor Name | Role | Phone | + [...] OTOLARYNGOLOGY 301 | [address] [facility] | | | | | [address] [facility] [address] | [address], | | | | | [place] | [place] [address] | | | | | [address] | [phone] | | | | | [phone] | | | +--------+--------+ + + + [...]
--- OUTSIDE RECORDS SUMMARY | ~2019-12-13 | XMS | Encounter Summary ---
Demographics + + + | Address | [address] | | | [place] [address] | + + + | Home Phone | | + + + | Preferred Language | Unknown | + + + | Marital Status | | + + + | Religion Affiliation | Unknown | + + + | Race | Unknown | + + + | Ethnic Group | Unknown | + + + Author + + + | Author | [facility] | | | and [place] | + + + | Organization | [facility] | | | [...] [place] | | | | | [address] | | + + + + + | Macario Kong | ECON | [address] | | | | | [place] [address] | | + + + + + Care Team Providers + +------+ + | Care Store Leader Name | Role | Phone | + [...] | | | hter/[place]/no | | [place] [address] | | | | | pcp/Is | | Phone: | | | | | choosing to | | [phone] | | | | | come back | | Fax: | | | | | for | | [phone] | | | | | audiology | [...] + | 05/25/ | Office | [facility] | Rahul Mares MD | Active Meniere's | | 2014 | Visit | OTOLARYNGOLOGY 301 | [address] [place] | disease, unspecified | | | | [address] | [address], | laterality (Primary | | | | [place], [place] | [place] [address] | Dx) | | | | [address] | [phone] | | | | | [phone] | | | +--------+---------+ + + + [...] MD - 05/25/2015 4:37 PM PDT [facility] OTOLARYNGOLOGY [address] [facility] [id number] OFFICE NOTE RAHUL MARES MD Patient: TRACY KONG Admitting: MR #: [id number] LOC: PT TYPE: Adm Date: 05/25/2015 : [...] 05/25/2015 16:37:46 Transcribed on 05/26/2015 09:05:51 by [facility] job# [id number] Confirmation #: [id number] signed by Rahul Mares MD at 05/26/2015 9:47 AM Rahul Colón MD - 05/25/2015 4:34 PM LUCIESee dictation # [id number] signed by Rahul Mares MD at 05/25/2015 4:38 PM PDTdocumented in th is encounter Plan of Treatment Not on filedocumented as of this encounter Visit Diagnoses + + | Diagnosis | + + | Active Meniere's disease, unspecified laterality - Primary | + + documented in this encounter
--- OUTSIDE RECORDS SUMMARY | ~2019-12-13 | XMS | Encounter Summary ---
Demographics + + + | Address | [address] | | | [place] [address] | + + + | Home Phone | | + + + | Preferred Language | Unknown | + + + | Marital Status | | + + + | Sabianist Affiliation | Unknown | + + + | Race | Unknown | + + + | Ethnic Group | Unknown | + + + Author + + + | Author | [facility] | | | and [place] | + + + | Organization | [facility] | | | [...] [place] | | | | | [address] | | + + + + + | Macario Kong | ECON | [address] | | | | | [place] [address] | | + + + + + Care Team Providers + +------+ + | Care Clinical Programmer Name | Role | Phone | + [...] OTOLARYNGOLOGY 301 | [address] [facility] | | | | | [address] [facility] [address] | [address], | | | | | [place] | [place] [address] | | | | | [address] | [phone] | | | | | [phone] | | | +--------+--------+ + + + [...]
--- OUTSIDE RECORDS SUMMARY | ~2019-12-13 | XMS | Encounter Summary ---
Demographics + + + | Address | [address] | | | [place] [address] | + + + | Home Phone | | + + + | Preferred Language | Unknown | + + + | Marital Status | | + + + | Samaritan Affiliation | Unknown | + + + | Race | Unknown | + + + | Ethnic Group | Unknown | + + + Author + + + | Author | [facility] | | | and [place] | + + + | Organization | [facility] | | [...] , [place] | | | | | [address] | | + + + + + | Macario Kong | ECON | [address] | | | | | [place] [address] | | + + + + + Care Team Providers + +------+ + | Care Health Assessment And Treatment Teacher Name | Role | Phone | + [...] | 2018 | | OTOLARYNGOLOGY 301 | Bulk Tank Driver | unspecified | | | | [address] | | laterality (Primary | | | | [place], [place] | | Dx) | | | | [address] | | | | | | [phone] | | | +--------+ + + + [...]
--- OUTSIDE RECORDS SUMMARY | ~2019-12-13 | XMS | Encounter Summary ---
Demographics + + + | Address | [address] | | | [place] [address] | + + + | Home Phone | | + + + | Preferred Language | Unknown | + + + | Marital Status | | + + + | Nondenominational Affiliation | Unknown | + + + [...] [place] | | | | | [address] | | + + + + + | Macario Kong | ECON | [address] | | | | | [place] [address] | | + + + + + Care Team Providers + +------+ + | Care Environmental Technical Officer Name | Role | Phone | + [...] | | | | | [address] [facility] [address] | [address], | | | | | [place] | [place] [address] | | | | | [address] | [phone] | | | | | [phone] | | | +--------+--------+ + + + [...]
--- OUTSIDE RECORDS SUMMARY | ~2019-12-13 | XMS | Encounter Summary ---
Demographics + + + | Address | [address] | | | [place] [address] | + + + | Home Phone | | + + + | Preferred Language | Unknown | + + + | Marital Status | | + + + | Confucianist Affiliation | Unknown | + + + | Race | Unknown | + + + | Ethnic Group | Unknown | + + + Author + + + | Author | [facility] | | | and [place] | + + + | Organization | [facility] | | | [...] [place] | | | | | [address] | | + + + + + | Macario Kong | ECON | [address] | | | | | [place] [address] | | + + + + + Care Team Providers + +------+ + | Care Sole Molding Machine Operator Name | Role | Phone [...] | | | | | [address] [facility] [address] | [address], | | | | | [place] | [place] [address] | | | | | [address] | [phone] | | | | | [phone] | | | +--------+--------+ + + + [...]
--- OUTSIDE RECORDS SUMMARY | ~2019-12-13 | XMS | Encounter Summary ---
Demographics + + + | Address | [address] | | | [place] [address] | + + + | Home Phone | | + + + | Preferred Language | Unknown | + + + | Marital Status | | + + + | Uatsdin Affiliation | Unknown | + + + | Race | Unknown | + + + | Ethnic Group | Unknown | + + + Author + + + | Author | [facility] | | | and [place] | + + + | Organization | [facility] | | | and [...] [place] | | | | | [address] | | + + + + + | Macario Kong | ECON | [address] | | | | | [place] [address] | | + + + + + Care Team Providers + +------+ + | Care Master Data Analyst Name | Role | Phone | + [...] | Otolaryngolog | Diagnoses | | Rahul Mraes | | | | y | In St | | [address], [address] | | | | [facility] | | [address] | | | | | for | | [address] | | | | | Vertigo/daug | | [place], | | | | | hter/BCBS/no | | [place] [address] | | | | | pcp/Is | | Phone: | | | | | choosing to | | [phone] | | | | | come back | | Fax: | | | | | for | | [phone] | | | | | audiology | [...] + + | 05/25/ | Office | [facility] | Rahul Mares MD | Active Meniere's | | 2014 | Visit | OTOLARYNGOLOGY 301 | [address] [place] | disease, unspecified | | | | [address] | [address], | laterality (Primary | | | | [place], [place] | [place] [address] | Dx) | | | | [address] | [phone] | | | | | [phone] | | | +--------+---------+ + + + [...] MD - 05/25/2015 4:37 PM PDT [facility] OTOLARYNGOLOGY [address] [facility] [id number] OFFICE NOTE RAHUL MARES MD Patient: TRACY KONG Admitting: MR #: [id number] LOC: PT TYPE: Adm Date: 05/25/2015 : [...] 05/25/2015 16:37:46 Transcribed on 05/26/2015 09:05:51 by [facility] job# [id number] Confirmation #: [id number] signed by Rahul Mares MD at 05/26/2015 9:47 AM Rahul Colón MD - 05/25/2015 4:34 PM LUCIESee dictation # [id number] signed by Rahul Mares MD at 05/25/2015 4:38 PM PDTdocumented in th is encounter Plan of Treatment Not on filedocumented as of this encounter Visit Diagnoses + + | Diagnosis | + + | Active Meniere's disease, unspecified laterality - Primary | + + documented in this encounter
--- OUTSIDE RECORDS SUMMARY | ~2019-12-13 | XMS | Encounter Summary ---
Demographics + + + | Address | [address] | | | [place] [address] | + + + | Home Phone | | + + + | Preferred Language | Unknown | + + + | Marital Status | | + + + | Druze Affiliation | Unknown | + + + | Race | Unknown | + + + | Ethnic Group | Unknown | + + + Author + + + | Author | [facility] | | | and [place] | + + + | Organization | [facility] | | | and [...] [place] | | | | | [address] | | + + + + + | Macario Kong | ECON | [address] | | | | | [place] [address] | | + + + + + Care Team Providers + +------+ + | Care Headstart Teacher Name | Role | Phone | [...] [address], | | | | | [place], [place] | [place] [address] | | | | | [address] | [phone] | | | | | [phone] | | | +--------+--------+ + + + [...]
--- OUTSIDE RECORDS SUMMARY | ~2019-12-13 | XMS | Encounter Summary ---
Demographics + + + | Address | [address] | | | [place] [address] | + + + | Home Phone | | + + + | Preferred Language | Unknown | + + + | Marital Status | | + + + | Buddhism Affiliation | Unknown | + + + | Race | Unknown | + + + | Ethnic Group | Unknown | + + + Author + + + | Author | [facility] | | | and [place] | + + + | Organization | [facility] | | | [...] , [place] | | | | | [address] | | + + + + + | Macario Kong | ECON | [address] | | | | | [place] [address] | | + + + + + Care Team Providers + +------+ + | Care Smoking Tobacco Packer Hand Name | Role | Phone | + [...] [place], | | | | | [place], [place] | [place] [address] | | | | | [address] | [phone] | | | | | [phone] | | | +--------+--------+ + + + [...]
--- OUTSIDE RECORDS SUMMARY | ~2019-12-13 | XMS | Encounter Summary ---
Demographics + + + | Address | [address] | | | [place] [address] | + + + | Home Phone | | + + + | Preferred Language | Unknown | + + + | Marital Status | | + + + | Alevism Affiliation | Unknown | + + + | Race | Unknown | + + + | Ethnic Group | Unknown | + + + Author + + + | Author | [facility] | | | and [place] | + + + | Organization | [facility] | | | [...] [place] | | | | | [address] | | + + + + + | Macario Kong | ECON | [address] | | | | | [place] [address] | | + + + + + Care Team Providers + +------+ + | Care Hack Driver Name | Role | Phone | + [...] OTOLARYNGOLOGY 301 | [address] [facility] | | | | | [address] [facility] [address] | [address], | | | | | [place] | [place] [address] | | | | | [address] | [phone] | | | | | [phone] | | | +--------+--------+ + + + [...]
--- OUTSIDE RECORDS SUMMARY | ~2019-12-13 | XMS | Clinical Summary ---
Demographics + + + | Address | [address] | | | [place] [address] | + + + | Home Phone | | + + + | Preferred Language | Unknown | + + + | Marital Status | | + + + | Alevism Affiliation | Unknown | + + + | Race | Unknown | + + + | Ethnic Group | Unknown | + + + Author + + + | Author | [facility] | | | and [place] | + + + | Organization | [facility] | | | [...] , [place] | | | | | [address] | | + + + + + | Macario Kong | ECON | [address] | | | | | , [place] [address] | | + + + + + Care Team Providers + +------+ + | Care Card Grader Name | Role | Phone | + [...] +--------+ +---------+------+ | [facility] | REGEN | [id number] | 08/18/19 | [phone] | | PPO | | | E [...] | [birth year] | | [address] INSTRUMENT TECHNICIAN HELPER | | | al/Fam | | 1955 | [phone] | [place] [address] | | | juan | | | 2 (Home) | | + +--------+ +--------+ + + Advance Directives + + + + + | Type | Date Recorded | Patient | Explanation | | | | Helicopter Dispatcher | | + + + + + | Power of | | | | | Building Drafter | | | | + + + + + | Advance | | | | | Directive | | | | + + + + +
--- OUTSIDE RECORDS SUMMARY | ~2019-12-13 | XMS | Clinical Summary ---
Demographics + + + | Address | [address] | | | [place] [address] | + + + | Home Phone | | + + + | Preferred Language | Unknown | + + + | Marital Status | | + + + | Yarsani Affiliation | Unknown | + + + | Race | Unknown | + + + | Ethnic Group | Unknown | + + + Author + + + | Author | [facility] | | | and [place] | + + + | Organization | [facility] | | [...] , [place] | | | | | [address] | | + + + + + | Macario Kong | ECON | [address] | | | | | , [place] [address] | | + + + + + Care Team Providers + +------+ + | Care Captain Waiter Name | Role | Phone | + [...] +--------+ +---------+------+ | [facility] | REGEN | [id number] | 08/18/19 | [phone] | | PPO | | | E [...] | [birth year] | | [address] DEAL ARCHITECT | | | al/Fam | | 1955 | [phone] | [place] [address] | | | juan | | | 2 (Home) | | + +--------+ +--------+ + + Advance Directives + + + + + | Type | Date Recorded | Patient | Explanation | | | | Handle Sander Operator | | + + + + + | Power of | | | | | Tapeman | | | | + + + + + | Advance | | | | | Directive | | | | + + + + +
--- OUTSIDE RECORDS SUMMARY | ~2019-12-13 | XMS | Encounter Summary ---
Demographics + + + | Address | [address] | | | [place] [address] | + + + | Home Phone | | + + + | Preferred Language | Unknown | + + + | Marital Status | | + + + | Holiness Affiliation | Unknown | + + + | Race | Unknown | + + + | Ethnic Group | Unknown | + + + Author + + + | Author | [facility] | | | and [place] | + + + | Organization | [facility] | | | [...] , [place] | | | | | [address] | | + + + + + | Macario Kong | ECON | [address] | | | | | [place] [address] | | + + + + + Care Team Providers + +------+ + | Care Soap Grinder Name | Role | Phone | + [...] | 2018 | | OTOLARYNGOLOGY 301 | Food And Nutrition Services Supervisor | unspecified | | | | [address] | | laterality (Primary | | | | [place], [place] | | Dx) | | | | [address] | | | | | | [phone] | | | +--------+ + + + [...]
[~2019-12-13 11:10] MED LIST: ANTIVERT12.5 MG PO; ANTIVERT25 MG PO; ZOFRAN ODT4 MG PO
[2019-12-13] MEDS ORDERED: TRIAMTERENE-HC1 EAC3 PO (11:26)
--- NOTE | 2019-12-13 15:43 | NUR ---
ADMIT PROCESS COMPLETED LEFT AT THIS TIME.
--- NOTE | 2019-12-13 16:14 | NUR ---
PT HAVING NAUSEA AND VOMETING. DR CURTIS NOTIFIED.
--- NOTE | 2019-12-13 16:21 | NUR ---
PT MEDICATED WITH 4MG IVP ZOFRAN FOR NAUSEA AND VOMETING.
--- NOTE | 2019-12-13 16:30 | NUR ---
pt contioues to have vometing 5mg compazine ivp given at this time.
--- NOTE | 2019-12-13 16:42 | NUR ---
PT APPEARS TO BE HAVING DRY HEAVES AT THIS TIME, SHE IS VERY SHANKEY. NO EMENISES NOTED. HAVE PT SITTING IN AN UPRIGHT POSITION.
[2019-12-13] MEDS ORDERED: TRAVEL SICKNESS25 MG PO (17:11)
--- NOTE | 2019-12-13 17:11 | NUR ---
MED REC COMPLETE
--- NOTE | 2019-12-13 17:27 | NUR ---
PT NAUSEA AND VOMETING HAS STOPED AT THIS TIME. CONTIOUES TO PICK ON HER CLEAR LIQUIDS.
--- NOTE | 2019-12-13 18:34 | NUR ---
PT HAS HAD NO NAUSEA AND OR VOMETING SO FAR AFTER BEING MEDICATED WITH ZOFRAN AND COMPAZINE. HEAD OF THE BED REMAINS ELEVATED.
--- NOTE | 2019-12-13 19:20 | NUR ---
REPORT RECEIVED FROM DAY SHIFT RN. PT LYING IN BED RESTING WITH EYES CLOSED, NAD. IVF INFUSING. BED ALARM ON FOR SAFETY. WHITE BOARD UPDATED. CALL LIGHT IN REACH.
--- NOTE | 2019-12-13 21:00 | NUR ---
EVENING ASSESSMENT COMPLETE. SCHEDULED MEDS GIVEN. IVF INFUSING. PT DECLINING SIPS OF CL LIQ DUE TO SWALLOWING ISSUES, STATES "IT JUST COMES BACK UP". DENIES THE NEED FOR PRN N/V. DENIES PAIN. PT ABLE TO REPOSITION SELF IN BED. ORIENTED X 3. TELE #3, SINUS TACH. HR 90'S. ORIENTED TO NURSE CALL LIGHT. BED ALARM ON FOR SAFETY.
--- NOTE | 2019-12-14 00:32 | NUR ---
UP TO BSC WITH SBA TO VOID 500ML CONCENTRATED URINE. GAIT STEADY. BACK TO BED, AMADA WELL. PT DENIES NAUSEA OR DIZZINESS WITH AMBULATION. NO FURTHER NEEDS.
--- NOTE | 2019-12-14 02:38 | NUR ---
PT RESTING IN BED WITH EYES CLOSED, NAD.
--- NOTE | 2019-12-14 05:07 | NUR ---
IVF COMPLETE. PT UP TO BSC WITH SBA. GAIT STEADY, PT DENIES DIZZINESS WITH AMBULATION. BACK TO BED, AMADA WELL. DENIES PAIN OR NAUSEA. SIPS OF WATER TAKEN WITH NO S/SX OF SWALLOWING ISSUES OR ASPIRATION. TELE #3 HR 100'S.
--- NOTE | 2019-12-14 07:31 | NUR ---
Pt awake, alert and oriented x3. Bed alarm intact. Pt denies pain at this time. Close to RN station. No needs at this time. Personal supplies and call light within reach.
--- NOTE | 2019-12-14 07:35 | NUR ---
PATIENT RESTING IN BED. PATIENT'S HANDS AND FACE CLEANED. CALL LIGHT WITHIN REACH. NO OTHER NEEDS AT THIS TIME
--- NOTE | 2019-12-14 09:30 | NUR ---
Pt. resting in bed. This pt. is known to me as she worked at [employer] for many years. She has lost a great deal of weight. Assessment completed and pt is able to answer questions. She lives with her spouse Macario, in [place]. They have 4 adult children. She retired from [employer] and insists she retired in 1978. We discussed this several times as she would have been 23 and I saw her in the last few years working at [employer]. I moved to a different subject as pt became upset insisting she retired in 1978. Pt is awaiting a CT scan. Would like to dc to home with her spouse on [place]. They live in a Trailer house with 5 steps.
--- NOTE | 2019-12-14 09:58 | NUR ---
PATIENT RESTING IN BED. STUDENT RN IN ROOM. VITAL SIGNS DONE BY STUDENT RN AND DOCUMENTED BY THIS STONE DERRICKMAN AND RIGGER. I&O DONE. PATIENT DID NOT VOID DURING THIS PERIOD, RN NOTIFIED. CALL LIGHT WITHIN REACH. NO OTHER NEEDS AT THIS TIME
--- NOTE | 2019-12-14 10:15 | NUR ---
Full liquid diet started; breakfast ordered at this time.
--- NOTE | 2019-12-14 10:30 | NUR ---
Pt took a few bites of her yogurt; she reports having difficulty "getting it down", no choking, coughing or appearance of aspiration at this time. Pt reports she has had difficulty swallowing for the last several months now. Pt stopped eating food and states she does not want anymore. Dr. Barragan updated regarding pt reports. MARILYN for a consult with ST for further evaluation.
--- NOTE | 2019-12-14 10:43 | NUR ---
Admin zofran 4mg ivp for reports of nausea.
--- NOTE | 2019-12-14 11:59 | EKG ---
[facility] [address] [facility] [place] [address] Signed Sinus rhythm with occasional premature ventricular complexes Otherwise normal ECG No previous ECGs available Confirmed by CONSUELO CURTIS MD ([id number]) on 12/14/2019 11:59:05 AM Electronically Signed By: CONSUELO CURTIS MD 12/14/19 1159 PATIENT NAME: TRACY BALNK Electrocardiogram DATE OF : 51 PHYSICIAN: CONSUELO CURTIS MD REPORT #: [id number] REPORT IS CONFIDENTIAL AND NOT TO BE RELEASED WITHOUT AUTHORIZATION
--- NOTE | 2019-12-14 12:00 | NUR ---
Notified by Rn, pt will not have CT until tomorrow as she needs to be npo x 4 hours.
--- NOTE | 2019-12-14 13:41 | NUR ---
PATIENT SITTING UP IN CHAIR. THE STUDENT RN OBTAINED THE VITAL SIGNS. VITAL SIGNS AND I&O DONE. CALL LIGHT WITHIN REACH. NO OTHER NEEDS AT THIS TIME
--- NOTE | 2019-12-14 13:45 | NUR ---
PT SITTING IN CHAIR, ALERT AND ORIENTED. PT SEEMS FRIENDLY, SAID SHE [place]ES ON [place] [facility]. PT STATED SHE IS FEELING MUCH BETTER. SN IN TO TAKE VS PT VERY DISTRACTED. GAVE BLESSING, WILL CHECK BACK AGAIN.
--- NOTE | 2019-12-14 13:52 | NUR ---
PATIENT SITTING UP IN CHAIR. THE STUDENT RN GOT THE VITAL SIGNS. VITAL SIGNS AND I&O DONE. CALL LIGHT WITHIN REACH. NO OTHER NEEDS AT THIS TIME
--- NOTE | 2019-12-14 17:33 | NUR ---
PATIENT SITTING UP IN CHAIR. PATIENT GOES TO USE THE BATHROOM. ONE PERSON ASSISTING. PATIENT BACKS TO BED. VITAL SIGNS AND I&O DONE. CALL LIGHT WITHIN REACH. NO OTHER NEEDS AT THIS TIME
--- NOTE | 2019-12-14 19:15 | NUR ---
BEDSIDE REPORT RECEIVED FROM MELANY TEJADA. pt RESTING IN BED WITH EYES CLOSED. BREATHING UNLABORED. IVF INFUSING WNL ORDERED. CALL LIGHT IN REACH.
--- NOTE | 2019-12-14 21:26 | NUR ---
pt ASSESSMENT COMPLETE. ATTEMPT AT IV START BY THIS RN. IVF INFUSING FS WNL ORDERED. pt DENIES TOILETING NEEDS. VSS. ICE WATER PROVIDED. pt EDUCATED ON NPO STATUS AT MIDNIGHT FOR PROCEDURE. CALL LIGHT IN REACH.
--- NOTE | 2019-12-14 21:46 | NUR ---
pt ASSESSMENT, VS, AND I+O's COMPLETE. FIELD START IV L AC FLUSHES WELL, ONE ATTMEPT TO START NEW IV BY RN BP, UNSUCCESFUL. WILL HAVE ANOTHER RN ATTMEPT. pt TOLERATED WELL, PM MEDS GIVEN PER ORDER, NEW ICE WATER GIVEN. RESTING IN BED SAFELY WITH CALL LIGHT IN REACH.
--- NOTE | 2019-12-14 23:22 | NUR ---
CHECKED ON pt. RESTING IN BED WITH EYES CLOSED, AWAKENS WITH RN ENTERING ROOM. DENIES TOILETING NEEDS. LIGHTS OFF IN ROOM REQUESTED. BED ALARM ON FOR pt SAFETY. CALL LIGHT IN REACH.
--- NOTE | 2019-12-15 01:10 | NUR ---
IN ROOM TO CHECK ON pt, AWAKENS TO VOICE. 1PA TO BR, VOIDED, BACK TO BED. RESTING SAFELY IN BED CALL LIGHT IN REACH AND BED ALARM ON. pt NPO, EDUCATION REINFORCED.
--- NOTE | 2019-12-15 03:46 | NUR ---
pt RESTING SAFELY WITH EYES CLOSED, RR EVEN AND UNLABORED. BED ALARM ON AND CALL LIGHT IN REACH
--- NOTE | 2019-12-15 04:51 | NUR ---
pt RESTED WELL THROUGHOUT THE SHIFT. pt HAD NO C/O OF N/V OR DIZZINESS. pt'S GAIT AND NEURO STATUS HAVE IMPROVED. IVF INFUSING PER ORDER. VS STABLE.
--- NOTE | 2019-12-15 05:55 | NUR ---
2ND pt ASSESSMENT, VS, AND I+O's COMPLETE. pt UP TO BR WITH MEDICAL IMAGING SPECIALISTMalik CAI, pt HAS NO C/O NAUSEA, DIZZINESS, OR PAIN. pt STATES "SHE IS FEELING MUCH BETTER AND MORE LIKE HERSELF". pt RESTING IN BED SAFELY WITH CALL LIGHT IN REACH AND BED ALARM ON. DENIES ANY FURHTER NEEDS AT THIS TIME.
--- NOTE | 2019-12-15 06:01 | NUR ---
NOTIFIED BY PHONE OF pt's LOW UO, NO NEW ORDERS AT THIS TIME
--- NOTE | 2019-12-15 07:40 | NUR ---
Pt awake, sitting up in bed. Pt has no distress at this time. Pt requesting shower; MEDICAL I D SALES to assist with this here shortly. No needs at this time. Personal supplies and call light within reach.
--- NOTE | 2019-12-15 08:09 | NUR ---
PATIENT RESTING IN BED. IV WRAPPPED. PATIENT GOES TO THE BATHROOM TO TAKE A SHOWER. PATIENT TAKES A SHOWER. ONE PERSON ASSISTING. PATIENT USING A CLEAN GOWN AND ADULT PULL UP. PATIENT BACKS TO CHAIR. LINENS CHANGED. WARM BLANKET PROVIDED. CALL LIGHT WITHIN REACH. NO OTHER NEEDS AT THIS TIME
--- NOTE | 2019-12-15 09:44 | NUR ---
PATIENT SITTING UP IN CHAIR. VITAL SIGNS GOT BY STUDENT RN. VITAL SIGNS AND I&O DONE. PATIENT DID NOT VOID DURING THIS PERIOD. CALL LIGHT WITHIN REACH. NO OTHER NEEDS AT THIS TIME
--- NOTE | 2019-12-15 12:35 | NUR ---
PT SITTING QUIETLY IN CHAIR, TV OFF. PT SAID SHE IS FEELING BETTER, ABLE TO SWALLOW BETER TODAY. ASKED IF SHE WANTED TO WATCH TV, PT SAID SHE DID NOT HAVE HER GLASSES SO SHE COULDN'T SEE TO WATCH. WILL CHECK WITH MELANY TEJADA ABOUT GETTING PTS' GLASSES. GAVE BLESSING, PT SMILED AND WAVED.
--- NOTE | 2019-12-15 12:53 | NUR ---
Pt sitting in chair at this time, resp even and non labored. Pt reports she has a sore throat and feels as if something remains in throat resulting in difficulty swallowing. No observation of respiratory distress, aspiration s/s, coughing and or choking events thus far in shift. Pt has been NPO for pending DI study.
--- NOTE | 2019-12-15 13:11 | NUR ---
Zofran 4mg IVP admin for reports of nausea.
--- NOTE | 2019-12-15 13:30 | NUR ---
REPORT REVCEIVED FROM MELANY TEJADA. WENT IN ROOM WITH DR CURTIS WHEN HE TALKED TO HER ABOUT THE RESULTS OF BARIUM SWALLOW. PT STATED SHE IS AGREEABLE TO AN EGD WITH LI. VERBALIZED THAT SHE IS WANTING TO FIGURE OUT WHAT IS GOING ON. GIVEN WARM BLANKET, HUNG NEW IVF BAG, TURNED UP HEAT IN ROOM. CALL LIGHT IN REACH.
--- NOTE | 2019-12-15 13:40 | NUR ---
PATIENT SITTING UP IN CHAIR. VITAL SIGNS GOT BY STUDENT RN. VITAL SIGNS DONE. I&O DONE BY RN. CALL LIGHT WITHIN REACH. NO OTHER NEEDS AT THIS TIME
--- NOTE | 2019-12-15 14:05 | NUR ---
Spoke with Fermín. She is tired and feels like she has had alot happening today. "Cold" and temp increased in room. States she needs to have an endoscopy as CT showed "something" in her throat. Denies needs at this time.
--- NOTE | 2019-12-15 15:59 | NUR ---
PT APPEARS TO BE RESTING IN CHAIR WITH EYES CLOSED. CALL LIGHT IN REACH.
--- NOTE | 2019-12-15 16:15 | NUR ---
SPOKE WITH REGARDING BRINGING IN GLASSES. ANSWERED HIS QUESTIONS REGARDING AND POSSIBLE EGD TOMORROW.
--- NOTE | 2019-12-15 17:33 | NUR ---
SPOKE WITH DR CURTIS REGARDING LOW URINE OUTPUT. ORDERED LR BOLUS AND BUMPED IVF TO 100\HR. PT DENIES CONCERNS ATT. ASKED AGAIN WHEN EGD WOULD BE. 0800 IS APPROX TIME OF LEAVING FLOOR.
--- NOTE | 2019-12-15 19:10 | NUR ---
SHIFT REPORT RECEIVED FROM MELANY VELA. pt TO BE NPO AT MIDNIGHT GOING TO SURGERY IN THE AM. pt IS SITTING UP IN THE CHAIR RESTING SAFELY WITH CALL LIGHT IN REACH.
--- NOTE | 2019-12-15 20:17 | NUR ---
pt ASSESSMENT, VS, I+O's COMPLETED. PM BOWEL CARE MEDS OFFERED, pt DECLINED SHE FEELS SHE WILL NOT BE ABLE TO SWALLOW THEM. pt REPORST MILD NAUSEA BUT DENIES NEED FOR PRN MEDS. pt SITTING UP IN CHAIR RESTING SAFELY WITH CALL LIGHT IN REACH. pt DENIES ANY FURHTER NEEDS AT THIS TIME.
--- NOTE | 2019-12-15 21:45 | NUR ---
PATIENT CALLED TO USE THE BATHROOM. PATIENT IS BACK IN BED. CALL LIGHT IN REACH. BED ALARM ON FOR SAFETY.
--- NOTE | 2019-12-15 21:53 | NUR ---
pt UP TO BR WITH EGGS INSPECTOR SINTA, VOIDED 100mLs, BLADDER SCANNED FOR 0mL. MD NOTIFIED, NEW ORDERS RECEIVED AND CONFIRMED USING THE REPEAT BACK METHOD.
--- NOTE | 2019-12-15 22:15 | NUR ---
pt MOVED TO RM 112, DUE TO ROOM 110 NEEDED FOR NEW ADMIT. pt RESTING SAFELY IN BED WITH CALL LIGHT IN REACH AND BED ALARM ON. pt DENIES ANY NEEDS AT THIS TIME.
--- NOTE | 2019-12-15 22:42 | CONS ---
[facility] [address], [place] [address] Signed DATE OF CONSULTATION: 12/15/2019 CHIEF COMPLAINT: Proximal esophageal dysphagia. HISTORY OF PRESENT ILLNESS: Tracy is a 64-year-old female, generally pretty healthy with Meniere disease and then what appears to be some mild dementia, although not formally diagnosed. She told me she really has no primary care provider, but does go up to the [facility] each year for her physical exam, Pap smear, and mammograms. However, she has never had a colonoscopy. She also sees her Ear, Nose, and Throat surgeon, Dr. Rahul Mares, for the Meniere disease. 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 She has had for at least 5 months, she thinks this swallowing issue has gotten worse. It is not only dysphagia to solids and liquids, but it is also odynophagia with pain. She thinks her throat is dry, but her mouth. There is some mention of nausea and vomiting, and dehydration. She said the last 5 days, it certainly got worse. Her family finally brought her to our emergency room for evaluation. In the emergency room, her white count was normal, but her BUN is up to 40, creatinine was up to 2.02. With hydration, her creatinine is down to 1.55 with a BUN of 19. Liver function tests were unremarkable. Albumin is good at 3.5. Physical exam was not particularly concerning. Specifically, she does swallow her saliva and speaks in full sentences. She had a CT scan of her neck and there may be some redundant tissue around the level of the thyroid gland, but there is a motion artifact. She then had an esophagram done and maybe a filling defect in the posterior oropharynx and/or upper esophagus versus air. She appears to have presbyesophagus and possibly up to 50% narrowing at the GE junction, although there is no hiatal hernia. Consequently, I was asked to see Magdalenomargaret as a general surgeon weekend receptionist for consideration of upper endoscopy. PAST MEDICAL HISTORY: Meniere disease, mild dementia, vertigo, and a burn of her right wrist and right forehead while cooking. PAST SURGICAL HISTORY: She has had four C sections, right ankle surgery without metal and bilateral tubal ligation. SOCIAL HISTORY: She does not smoke or drink ever. Her does not smoke or drink. She has not been around secondhand smoke. Her is Macario at [phone] and then his cellphone is [phone]. They prefer the [facility] pharmacy. She has 4 children. She continues to drive. She told me she is a retired accountant helper for the . She told me she has a 2-year associate degree from [employer]. She has no primary care provider per se. She does go to the [facility] every Electronically Signed By: MELISA JEFFERSON MD 12/15/192241 PATIENT NAME: TRACY BLANK CONSULTATION DATE OF : 51 REPORT #: [id number] PHYSICIAN: MELISA JEFFERSON MD PCP: RAHUL MARES JR, MD REPORT IS CONFIDENTIAL AND NOT TO BE RELEASED WITHOUT AUTHORIZATION [address] [address] Signed year as well as her planing machine operator is Dr. Rahul Mares. FAMILY HISTORY: She told me her mother of an [place]. Father of old age at 95. REVIEW OF SYSTEMS: She had 10 systems reviewed and told me she has never had a colonoscopy. ALLERGIES: She told me Cipro causes her blood pressure to bottom out. MEDICATIONS: 1. Triamterene/hydrochlorothiazide (37.5/25) one p.o. daily. 2. Meclizine p.r.n. 3. Zofran p.r.n. PHYSICAL EXAMINATION: VITAL SIGNS: Blood pressure 120/65, heart rate 80, respiratory rate 14, temperature is 97.3, saturating 99% on room air. She is 5 feet 2 inches, 61 kg. GENERAL: Tracy is a 64-year-old female, sitting in her chair at the bedside. Her IV fluids running. She is alert, awake, and interactive. She is in no acute distress. She has no shortness of breath. No increased work of breathing. She swallows saliva just fine. She talks in full sentences. She makes excellent eye contact. However, it is clear that she is not the best historian and it gives me sense she prior has mild dementia. LUNGS: Clear to auscultation bilaterally. HEART: Regular rate and rhythm. ABDOMEN: Flat. RECTAL: Not performed. LABORATORY DATA: Her white blood cell count 7.5, hemoglobin 14, neutrophils 64, platelets 356. BUN was 40 down to 19 and creatinine was 2.02 down to 1.5. Liver function tests are negative, albumin 3.5, glucose is 102. RADIOGRAPHIC STUDIES: A CT scan of the neck was performed and there was question of some redundant tissue around the level of the thyroid versus motion artifact. The esophagram showed what may be a persistent filling defect in the posterior oropharynx versus the upper esophagus versus air. There is presbyesophagus and possibly a 50% narrowing at the GE junction. It appears to be very short distance, maybe 1 cm. There is no hiatal hernia. ASSESSMENT/PLAN: Tracy is a 64-year-old female, who is complaining of proximal esophageal dysphagia and Electronically Signed By: MELISA JEFFERSON MD 12/15/19 3859 PATIENT NAME: TRACY BLANK CONSULTATION DATE OF : 51 REPORT #: [id number] PHYSICIAN: MELISA JEFFERSON MD PCP: RAHUL MARES JR, MD REPORT IS CONFIDENTIAL AND NOT TO BE RELEASED WITHOUT AUTHORIZATION [facility] [address], [place] [address] Signed odynophagia. She said even swallowing the contrast for the esophagram was painful. She swallows of saliva just fine. I have reviewed all this with Tracy in detail. Also called her Macario on the phone with her permission. He told me that he and the family have noticed that she probably does have mild dementia. He told me it has been very difficult to get her to her primary care provider. He does have a family doctor here in town and I encouraged him to schedule Tracy in that regard. She does need some general medical care and probably needs a colonoscopy as well. In the meantime, we will plan on doing her upper endoscopy tomorrow with monitored anesthesia care, partly for the dementia, partly for the airway control. We know the Versed can make dementia worse. We will probably stay with propofol. We gently take routine biopsies and pictures and we will see if there is anything in the posterior oropharynx versus upper esophagus. If there is a sense of stricture in the GE junction, we can certainly dilate that as well. I did review the risks including, but not limited to gas bloating, crampy abdominal pain, bleeding, perforation requiring surgery, and missed diagnosis. Tracy and her have expressed understanding and wished to proceed. Melisa Jefferson MD ALB/MODL /[id number] cc: MD Melisa Brand MD [facility] Copies: RAHUL MARES MD, ANDREW L MD ~ Electronically Signed By: MELISA JEFFERSON MD 12/15/19 2242 PATIENT NAME: TRACY BLANK CONSULTATION DATE OF : 51 REPORT #: [id number] PHYSICIAN: MELISA JEFFERSON MD PCP: RAHUL MARES JR, MD REPORT IS CONFIDENTIAL AND NOT TO BE RELEASED WITHOUT AUTHORIZATION
--- NOTE | 2019-12-16 00:39 | NUR ---
pt RESTING SAFELY IN BED WITH EYES CLOSED, RR EVEN AND UNLABORED. WATER GLASS REMOVED FROM BEDSIDE TABLE FOR NPO @MIDNIGHT
--- NOTE | 2019-12-16 02:48 | NUR ---
NEW BAG OF IVF HUNG, SBA TO BR, pt ONLY VOIDED 100mL/4HR. MD NOTIFIED BY PHONE, NEW ORDERS RECEIVED. pt RESTING IN BED SAFELY WITH CALL LIGHT IN REACH AND BED ALARM ON. DENIES ANY FURTHER NEEDS AT THIS TIME.
--- NOTE | 2019-12-16 04:18 | NUR ---
pt RESTING IN BED SAFELY WITH EYES CLOSED, RR EVEN AND UNLABORED, CALL LIGHT IN REACH AND BED ALARM ON.
--- NOTE | 2019-12-16 05:23 | NUR ---
pt RESTED WELL THROUGHOUT NIGHT. USES CALL LIGHT APPROPRIATELY, SBA TO BR. pt NEEDS PROMPTING TO VOID, UO NOT QUANTITY SUFFICIENT, DR. CURTIS NOTIFIED. NO C/O OF N/V OR DIZZINESS. IVF INFUSING PER ORDER, VS STABLE. PRE PROCEDURE CHECKLIST COMPLETE. LR WITH STRAIGHT TUBING HUNG AT BEDSIDE.
--- NOTE | 2019-12-16 07:59 | NUR ---
COMPLETED ASSESSMENT. PT ALERT AND ORIENTED, LUNG SOUNDS CLEAR THROUGHOUT. D5LR RUNNING AT 150ML/HR. NEW BAG HUNG WITH STRAIGHT TUBING CONNECTED FOR SURGERY. SURGERY IN TO TAKE PATIENT, PATIENT ABLE TO TRANSER WITHOUT ASSISTANCE.
--- NOTE | 2019-12-16 08:30 | NUR ---
PT HAVING NAUSEA, ADMINISTERED 4MG ZOFRAN ORDERED. PT HAD SHORTNESS OF BREATH ASSOCIATED WITH NAUSEA. HAD PATIENT SIT UPRIGHT IN BED AND TAKE DEEP BREATHS, THAT SEEMED TO HELP, CPOX AT 94% PT IN BED, CALL LIGHT IN REACH.
--- NOTE | 2019-12-16 08:59 | NUR ---
12/16/19 0859 Thu Garrett 0850 PT ARRIVED TO PACU ASLEEP. VSS. RESP EVEN AND UNLABORED. 0855 PT DENIES PAIN AND NAUSEA AND IS REORIENTED TO PACU. PT WAKES EASILY TO VERBAL STIMULI. PT RESTING IN BED WITH EYES OPEN.
--- NOTE | 2019-12-16 09:00 | NUR ---
In to see pt and she is in surgery for EGD.
--- NOTE | 2019-12-16 09:30 | NUR ---
PT EXPERIENCING NAUSEA AND SHORTNESS OF BREATH. SAT PT UP IN BED AND HAD HER TAKE DEEP BREATHS, CPOX UP TO 94% AFTER DEEP BREATHING. PT CURRENTLY SITTING UP IN BED, CALL LIGHT IN REACH.
--- NOTE | 2019-12-16 10:30 | NUR ---
PT STILL WITH NAUSEA. ADMINISTERED COMPAZINE PER OCT. PT SITTING UP IN BED, NO OTHER NEEDS AT THIS TIME.
--- NOTE | 2019-12-16 12:00 | NUR ---
PT NAUSEA RESOLVED. ASSESSED SWALLOWING WITH WATER, PT HAD DIFFICULTY BUT WAS ABLE IN SMALL QUANTITIES. GAVE GI COCKTAIL PER MAR, PT WAS ABLE TO SWALLOW 90% PT REPORTED IT FEELS LIKE SOMETHING STUCK IN THROAT MAKING IT HARD TO SWALLOW. PT ABLE TO TAKE MIRALAX WITH SMALL SIPS. ASSISTED PT TO BATHROOM TO VOID OF 500ML. PT NOW SITTING UP IN BED, CALL LIGHT IN REACH, NO OTHER NEEDS AT THIS TIME.
--- NOTE | 2019-12-16 12:07 | NUR ---
VISITED WITH PT-SHE WAS SITTING UP IN BED VOID BAG AT THE READY. PT WAS ALERT AND ORIENTED. RN KORI CAME IN TO CHECK ON PT AND INFORMED PT THAT DR HAD ORDERED A CLEAR DIET FOR HER, PT ACKOWLEDGED. PT ANSWERED MOST QUESTIONS I ASKED ON POINT, BUT STRUGGLED TO ANSWER WHERE THEIR RANCH WAS LOCATED BESIDES JUST THE ROAD IT WAS LOCATED ON. PT ACCEPTED A P.MARLYSWL, REQUESTED PRAYER AND MENTIONED THAT SHE NOW HAD HER GLASSES.
--- NOTE | 2019-12-16 13:00 | NUR ---
RESPONDED TO CALL LIGHT. PT REPORTED WETNESS ON ARM. ASSESSED IV, LEAKING AT SITE. DISCONTINUED IV, CATHETER INTACT. ASSISTED KORI MOSLEY TO START NEW IV ON LEFT AC, 20G. 2 ATTEMPTS. PT TOLERATED WELL. PT SITTING UP IN BED, CALL LIGHT IN REACH, NO OTHER NEEDS AT THIS TIME.
--- NOTE | 2019-12-16 13:19 | NUR ---
PT ATE 50% OF LUNCH. NO NAUSEA/VOMITTING. PAIN 5/10 PIAN. 5MG OXYCODONE ADMINISTERED. RUE ELEVATED WITH ICE. PT BACK IN BED. CALL LIGHT IN REACH.
--- NOTE | 2019-12-16 13:34 | NUR ---
SALINE LOCKED IV. PT TAKEN FOR IMAGING.
--- NOTE | 2019-12-16 14:10 | NUR ---
In to see pt. She is gone for MRI. Will follow up tomorrow.
--- NOTE | 2019-12-16 14:29 | NUR ---
PT BACK FROM IMAGING. RESTARTED IVPB POTASSIUM THEN D5LR @100ML/HR. PT HAD BM, SMALL SOFT BROWN AND VOID OF 150ML. LUNGS CLEAR, BREATHING EASY UNLABORED. NO NAUSEA/VOMITING. PT NOW SITTING IN CHAIR EATING JELLO. CALL LIGHT IN REACH.
--- NOTE | 2019-12-16 14:51 | NUR ---
REVIEWED BARIUM SWALLOW STUDY. BARIUM SWALLOW STUDY INDICATIVE REDUCED ESOPHAGEAL TRANSIT WITH POOR ESOPHAGEAL CLEARANCE OF LIQUIDS. SIGNIFICANTLY REDUCED ESOPHAGEAL MOTILITY WITH RETROGRADE FLOW TO THE LEVEL OF THE LARYNX. RADIOLOGIST IDENTIFIED SIGNIFICANT PRESBYESOPHAGUS. DISTAL ESOPHAGUS HAS APPROXIMATELY 50% NARROWING. ALSO IDENFITIED FILLING DEFICIT AT PHARYNX/UPPER ESOPHAGUS. THE STUDY DOES REVEAL WEAK PHARYNGEAL SWALLOW WITH MODERATE RESIDUE. THIS IS ABNORMAL FOR HER AGE AND PHARYNGEAL EXERCISES COULD ADDRESS THESE DEFICITS. HOWEVER, HER PHARYNGEAL DEFICITS DO NOT EXPLAIN HER PRESENTATION OF SYMTPOMS AND SEVERITY, AND DO NOT EXPLAIN THE PAIN DURING THE SWALLOW. I RECOMMENDED THAT TRACY IS EVALUATED BY A GI DOCTOR TO COMPREHENSIVELY EVALUATE HER ESOPHAGEAL SWALLOW AND BOLUS TRANSIT.
--- NOTE | 2019-12-16 15:56 | NUR ---
Received call from Brittanie Kong Fermín's daughter. She is upset as she feels there has been a lack of communitcation. Informed, Dr Barragan has been speaking with her father daily. She feels her father is not passing on the correct information. She would like to have a family meeting. Discussed we could do a phone meeting, as currently no visitors are allowed in the hospital due to Covid. Also, let her know Dr. Barragan is leaving today and Dr. Page will now be on service. She states she feels we are grasping at straws, as nothing has show up with any of the procedures. Let her know I can try and catch Dr. Barragan before he leaves today, but he may already be gone. I will call the hospitalist and request they call her. She does not want to have a meeting by phone as she states she lives out of town and her dad lives in [place], phone service is not good. She wanted to know if they could have a meeting in the parking lot and I let her know, I don't think this would be possible. Called and spoke with Dr. Page. Dr. Barragan is gone. Dr. Page will call the daughter after he finishes with a pt in the ER.
--- NOTE | 2019-12-16 16:08 | NUR ---
Called daughter and updated, Dr Page will call after seeing a pt. Again discussed we understand how hard it is for families now, not being able to be involved in their care and not allowed to visit. She states she is so worried as her mom has been showing signs of dementia for a while. She thinks she has had a near 100# wt loss, her dad feels it is 50#. Daughter states mom has not had difficulty swallowing as she has stated and this just started in the last few days. 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
--- NOTE | 2019-12-16 16:11 | NUR ---
PATIENT CALLED BEFORE SHE GOT BACK IN BED I TOOK HER CLEAR LIQ. TRAY OUT. NOW SHE IS TRYING TO DRINK ONE OF THOSE CLEAR LIQ. DRINKS. SHE WAS SITTING UP IN HER CHAIR.
--- NOTE | 2019-12-16 17:06 | NUR ---
PT USES CALL LIGHT APPROPRIATELY. HAD 2 SOFT FORMED BM AFTER BOWEL MEDICATIONS GIVEN. UO BARELY QS. PT HAD EASIER TIME SWALLOWING THICKER LIQUIDS IF TAKEN SLOWLY. GAVE CLEAR ENSURE FOR CALORIES DIDN'T EAT MUCH TODAY. VITALS STABLE, IVF RUNNING ORDERED. 1P STAND BY ASSIST. PT DENIES NAUSEA/VOMITING THIS EVENING.
--- NOTE | 2019-12-16 17:38 | NUR ---
DR VACA CALLED TO FLOOR TO REQUEST IMAGING TO BE SENT TO [facility]. IMAGING CALLED TO PUSH IMAGES OVER, DISK WILL ALSO BE MADE.
--- NOTE | 2019-12-16 18:12 | NUR ---
PT ATE A FEW BITES OF JELLO, DID NOT TOUCH REST OF DINNER TRAY. HAD A FEW SIPS OF CLEAR ENSURE, TOLERATED IT WELL. ENCOURAGED PT TO SIP ON THAT TO GET SOME CALORIES IN MUCH SHE COULD. PT RECEPTIVE, VERBALIZED UNDERSTANDING OF GETTING ADEQUATE NUTRITION.
--- NOTE | 2019-12-16 19:20 | NUR ---
Recieved report from day shift nursing home admissions director. Introduced self to patient. Denies needs at this time.
--- NOTE | 2019-12-16 20:28 | NUR ---
ASSIST TO BATHROOM. CONTINENT OF URINE. RETURNS TO BED. IV FLUIDS RESTARTED WITH NEW BAG OF FLUIDS INITIATED. SIDE RAILS UP X2. CALL LIGHT IN REACH. DENIES OTHER NEEDS AT THIS TIME. DENIES NAUSEA OR PAIN.
--- NOTE | 2019-12-16 21:55 | NUR ---
RESTING ON LEFT SIDE, HEAD OF BED ELEVATED. RESP EVEN AND UNLABORED. BED RAILS UP X2.
--- NOTE | 2019-12-16 23:32 | NUR ---
Lying in bed on left side. Respirations even and unlabored. No signs or symptoms of pain at this time. Allowed to rest. Call light in reach. Bed rails up X2.
--- NOTE | 2019-12-17 01:30 | NUR ---
LYING ON RIGHT SIDE. RESPIRATIONS EVEN AND UNLABORED. NO SIGNS OF PAIN OR DISCOMFORT NOTED. CALL LIGHT IN REACH, SIDE RAILS UP X2.
--- NOTE | 2019-12-17 03:15 | NUR ---
ASSESSMENT COMPLETED. PATIENT DENIES NAUSEA OR PAIN AT THIS TIME. NO CHANGES FROM PREVIOUS ASSESSMENT NOTED. RESPOSITIONS SELF IN BED AND CLOSES HER EYES, DENYING OTHER NEEDS AT THIS TIME. CALL LIGHT IN REACH. BED RAILS UP X2.
--- NOTE | 2019-12-17 06:41 | NUR ---
Ambulates to bathroom with standby assist. Unsteady gait. Denies nausea throughout night. Sleeps most of the night. Urine output remain inadequate with dark urine. Continues on IV fluids and clear liquids.
--- NOTE | 2019-12-17 07:24 | OR ---
[facility] [address], [place] [address] Signed DATE OF OPERATION: 12/16/2019 SURGEON: Melisa Jefferson MD PREOPERATIVE DIAGNOSES: 1. Proximal esophageal dysphagia. 2. Possible stricture at gastroesophageal junction. 3. Odynophagia. 4. Proximal esophageal filling defect on radiographic studies. POSTOPERATIVE DIAGNOSES: 1. Mild gastroduodenitis. 2. Multiple small benign-appearing proximal gastric polyps. 3. Mild to moderate patulous and short gastroesophageal junction. 4. No evidence of mass in proximal esophagus. PROCEDURE: EGD with CLOtest and biopsies of the pyloric bulb, antrum, gastric polyps x2, GE junction and proximal esophagus. ESTIMATED BLOOD LOSS: None. INDICATIONS: Tracy is a 64-year-old female, who said over the last 5 months she has had worsening proximal esophageal dysphagia and odynophagia. She said her throat is dry. There was some mention of nausea, vomiting, and dehydration in the last 5 days. In addition, she has not had a primary care provider. She does go to the [facility] every year for a female exam and her mammograms. Unfortunately, she has never had a colonoscopy either. In talking with her , Macario and with Tracy, it appears that she does have some level of dementia. She is yet to be formally tested. She came in our emergency room with dehydration and acute renal failure with her above symptoms. She was admitted to the Internal Medicine Service. She has been hydrated and overall improved. Initially, BUN and creatinine were 40 and 2.02, they were now down to 19 and 1.55. Liver function tests and albumin were fine. In talking with Tracy, she does swallow her saliva just fine and she talks in full sentences. There is no change in her voice. CT scan of the neck showed maybe some redundant tissue at the level of the thyroid unfortunately with quite a bit of motion artifact. She had a standard barium swallow and there may be a filling defect and/or air in her upper esophagus. She appears to have presbyesophagus and possibly 50% narrowing at the GE junction over about Electronically Signed By: MELISA JEFFERSON MD 12/17/19 0724 PATIENT NAME: TRACY BLANK OPERATIVE REPORT DATE OF : 51 REPORT #: [id number] PHYSICIAN: MELISA JEFFERSON MD PCP: MANDY MARES JR, MD REPORT IS CONFIDENTIAL AND NOT TO BE RELEASED WITHOUT AUTHORIZATION [facility] [address] [place] [id number] Signed 1 cm. No obvious hiatal hernia. Given those findings, I have been asked to see her as a general surgeon stoneworking sander for upper endoscopy. I met with Magdalenomargaret here in the hospital. Because of COVID-19 virus, her was at home. I called him later on the phone. I had reviewed with Tracy and her the above findings. We reviewed upper endoscopy in detail. There is a risk including, but not limited to gas bloating, crampy abdominal pain, bleeding, perforation requiring surgery, and missed diagnosis. Also because of her dementia, Versed can make that worse, so we asked for an anesthesia provider for monitored anesthesia care mainly with propofol. In addition if we do encounter a mass in the posterior oropharynx and/or the proximal esophagus, we will need careful airway control. She and her had expressed understanding and wished to proceed. DESCRIPTION OF PROCEDURE: Tracy was taken into our endoscopy suite and placed in a supine position under propofol and ketamine anesthesia. A bite block was utilized for the case. The adult gastroscope was carefully advanced over the tongue and we could see no obvious issues with the epiglottis or the base of the tongue or the arytenoids. Vocal cord seemed to be unremarkable. The adult gastroscope passed easily into the esophagus and we advanced slowly under direct visualization. We saw no issues in the proximal middle or distal esophagus. She does have a short, somewhat patulous GE junction. No obvious stricture. The stomach showed mild inflammatory changes throughout along with small benign-appearing polyps in the proximal half of her esophagus. There were no ulcerations. The pyloric bulb showed mild inflammatory changes, but no ulcerations. The 2nd and 3rd portions of the duodenum were unremarkable. After this, the scope was then slowly withdrawn. We took biopsies of the pyloric bulb in the antrum. We also took a biopsy from the antrum for CLOtest. We removed two small polyps for pathologic review. Upon retroflexion of scope again, she has [id number] patulous GE junction, but there was no obvious hiatal hernia. The scope was withdrawn up to the area of GE junction and we could see she had a little inflammation along the Z-line. However, the Z-line remains intact. We went ahead and took a biopsy at the Z-line for pathologic review. Again, no obvious issues with the distal, middle or upper esophagus. We went ahead and took a biopsy out of the upper esophagus just below the upper esophageal sphincter. After this, the posterior oropharynx was re-examined as the scope was withdrawn and again, we found no issues. The gas had been suctioned out and the gastroscope removed. Tracy tolerated the procedure quite well. RECOMMENDATIONS: Tracy will be returned to her room onto the medical service. She is currently on a clear liquid diet. She might consider a formal mental status exam along with a formal speech pathology exam. Electronically Signed By: MELISA JEFFERSON MD 12/17/19 0724 PATIENT NAME: TRACY BLANK OPERATIVE REPORT DATE OF : 51 REPORT #: [id number] PHYSICIAN: MELISA JEFFERSON MD PCP: MANDY MARES JR, MD REPORT IS CONFIDENTIAL AND NOT TO BE RELEASED WITHOUT AUTHORIZATION [address] [place], [place] [address] Signed Melisa Jefferson MD ALB/MODL /[id number] cc: MD Melisa Harrison Jr, MD [facility] Copies: MANDY MARES JR, MD, ANDREW L MD ~ Electronically Signed By: MELISA JEFFERSON MD 12/17/19 0724 PATIENT NAME: TRACY BLANK OPERATIVE REPORT DATE OF : 51 REPORT #: [id number] PHYSICIAN: MELISA JEFFERSON MD PCP: MANDY MARES JR, MD REPORT IS CONFIDENTIAL AND NOT TO BE RELEASED WITHOUT AUTHORIZATION
--- NOTE | 2019-12-17 07:56 | NUR ---
ENTERED ROOM TO CHECK ON pt. pt WAS SLEEPING LAYING ON RIGHT SIDE WITH CALL LIGHT WITHIN REACH. BED WAS IN LOWEST POSITION WITH SIDE RAILS UP X2. RESPERATIONS WERE EVEN AND UNLABORED. pt LEFT IN SAME POSITION FOUND.
--- NOTE | 2019-12-17 08:30 | NUR ---
ENTERED ROOM TO CHECK ON pt. pt STILL SLEEPING IN BED ON RIGHT SIDE WITH CALL LIGHT WITHIN REACH. BED IN LOWEST POSITION, AND SIDE RAILS UP X2. RESPERATIONS ARE EVEN AND UNLABORED. pt LEFT IN SAME POSITION FOUND, WILL COME IN AFTER 0900 TO SEE IF pt IS AWAKE.
--- NOTE | 2019-12-17 09:00 | NUR ---
Call from [facility]. He attempted to help pt set up video call, but was unable to do so. Went to room and spoke with pt about cell phones. She does not have one with her. Gave the number for family to call directly into the room if needed. Pt was able to call and speak with her . Pt was discussed in [address].
--- NOTE | 2019-12-17 09:01 | NUR ---
PT AWAKE AT THIS TIME, BKF ORDER FOR HER, SHE HAD A HARD TIME TO TELL COMPLIANCE REPRESENTATIVE DEALER WHAT SHE WANTED. ASSESSMENT COMPLETED.
--- NOTE | 2019-12-17 09:09 | NUR ---
ENTERED ROOM TO GIVE pt MEDICATION. pt WAS AWAKE SITTING UP IN BED WITH CALL LIGHT WITHIN REACH. HEAD RAILS UP X2 AND BED IN LOWEST POSITON. BREAKFAST ARRIVED AND pt WAS LEFT SITTING IN BED EATING BREAKFAST.
--- NOTE | 2019-12-17 09:42 | NUR ---
PATIENT ATTEMPTING TO EAT JELLO FOR BREAKFAST, BECAME NAUSEATED, INDICATED THAT SHE IS ASPIRATING. LIQUIDS REMOVED FROM BEDSIDE, COMPAZINE 5MG IV GIVEN. PLAN TO NOTIFIY DR. VACA.
--- NOTE | 2019-12-17 10:12 | NUR ---
PT AWAKE AND SITTING UP IN THE BED, DENIES NAUSEA AT THIS TIME. PT IS SLOW TO RESPOND TO QUESTIONS, BUT DOES ANSWER QUESTION.
--- NOTE | 2019-12-17 10:17 | NUR ---
ENTERED pt ROOM TO CHECK ON pt. pt WAS SLEEPING WITH HEAD OF BED UP, CALL LIGHT WITHIN REACH, HEAD RAILS UP X2, AND BED IN LOWEST POSITION. RESPERATIONS EVEN AND UNLABORED. pt LEFT FOUND.
--- NOTE | 2019-12-17 10:32 | NUR ---
PT ASLEEP AT THIS TIME. RESP RATE EVEN AND UNLABORED AT THIS TIME.
--- NOTE | 2019-12-17 11:05 | NUR ---
SPENT TIME WITH PTS' FAMILY ARRANGING PHONE CALL FOR THEM TO CONNECT WITH PT. DAUGHTER TAYLER STATED THAT FAMILY FEELS LIKE THEY HAVE NOT MUCH INFO AND BEING UNABLE TO VIST HAS COMPLICATED THINGS. THEY DIDN'T TAKE THE OPPORTUNITY TO CALL PT PREVIOUSLY AND FELT THEY COULD SELDOM CATCH AN RN WHEN THEY WOULD CALL. PT USED DEPT PHONE, CALLED AND CONNECTED WITH FAMILY AND PT WAS ABLE TO HAVE LENGTHY CALL WITH FAMILY. ENCOURAGED TAYLER THAT SHE CAN CALL ANYTIME ON RM PHONE. SHE SEEMED RELIEVED AND WAS GRATEFUL FOR CALL. EXTENDED A BLESSING
--- NOTE | 2019-12-17 11:30 | NUR ---
ENTERED ROOM TO HOOK pt BACK UP TO IV AFTER SHOWER. pt WAS LAYING IN BED WITH CALL LIGHT WITHIN REACH AND HEAD RAILS UP X2. BED IS IN LOWEST POSITION. IV DRESSING WAS CHANGED AND pt HOOKED BACK UP TO CONTINOUS IV. pt LEFT IN SAME POSITION FOUND.
--- NOTE | 2019-12-17 12:01 | NUR ---
DR VACA INTO SEE PT AT THIS TIME. TALKED WITH PT AND SHE WAS ABLE TO ANSWER QUESTIONS.
--- NOTE | 2019-12-17 12:07 | NUR ---
PT GIVEN CLEAR JUICE ENSURE TO TRY TO DRINK. ENCOURAGE HER TO TAKE IT SLOW AND EASY.
--- NOTE | 2019-12-17 12:40 | NUR ---
Spoke with Fermín. She is wanting to go home. Was able to speak with her this morning. This made her feel better.
--- NOTE | 2019-12-17 12:46 | NUR ---
ENTERED ROOM TO ENCOURAGE pt TO DRINK ENSURE. pt WAS SLEEPING IN BED, WITH CALL LIGHT WITHIN REACH, AND BED IN LOWEST POSITION. HEAD RAILS UP X2. pt TOOK TWO SIPS. pt SHIFTED WEIGHT IN BED IN THEN CLOSED HER EYES TO GO BACK TO SLEEP. pt LEFT SLEEPING.
--- NOTE | 2019-12-17 13:06 | NUR ---
PT SITTING UP IN BED SIPPING ON HER ENSURE AT THIS TIME, NO COUGHING NOTED.
--- NOTE | 2019-12-17 13:20 | NUR ---
Notified by Dr. Page he would like to dc pt to home today. She is in need of a PCP and will need a follow up appt and also referral to [facility] for neurology and digestive health. Called Dr. Nathan's and appt. scheduled for December 29, 10:00. Progress notes, labs, Imaging reports, and medication list faxed. On line referral form downloaded and completed. Chart as above and forms faxed to [facility] referral center.
--- NOTE | 2019-12-17 13:40 | NUR ---
ENTERED pt ROOM TO CHECK ON pt. pt SITTING UP IN BED WITH HEAD RAILS UP X2. CALL LIGHT WAS WITHIN REACH. ENCOURAGED pt TO TAKE SIPS OF ENSURE. pt TOOK 3 SIPS. pt WAS LEFT IN SAME POSITION FOUND.
[2019-12-17] MEDS ORDERED: PROTONIX40 MG PO (13:57)
[2019-12-17] MEDS ORDERED: ZOFRAN4 MG PO (13:58)
--- NOTE | 2019-12-17 14:30 | PATH ---
[facility] [address] [place], [place] [address] Signed SPECIMEN(S): A DUODENUM BULB SPECIMEN(S): B ANTRUM/PYLORUS SPECIMEN(S): C GASTRIC POLYP SPECIMEN(S): D GE JUNCTION SPECIMEN(S): E UPPER ESOPHAGUS SPECIMEN SOURCE: A. DUODENUM BULB B. ANTRUM/PYLORUS C. GASTRIC POLYP D. GE JUNCTION E. UPPER ESOPHAGUS CLINICAL HISTORY: Acute kidney injury. Preop: Esophageal dysphagia. Postop: Gastric duodenitis, gastric polyps. MICROSCOPIC DESCRIPTION: Histologic sections of all submitted blocks are examined by light microscopy. These findings, together with the gross examination, support the pathologic diagnosis. FINAL PATHOLOGIC DIAGNOSIS: A. Duodenum bulb, biopsy: - Reactive duodenal mucosa with vascular congestion and edema, negative for significantly increased intraepithelial lymphocytosis or acute inflammation. B. Antrum/pylorus, biopsy: - Minimal chemical/reactive gastropathy with vascular congestion. - Negative for intestinal metaplasia. - Negative for Helicobacter organisms on routine stain. C. Gastric polyp, polypectomy: - Fragments of fundic gland polyp. D. GE junction, biopsy: - Scant fragments of reactive columnar mucosa with increased chronic inflammation. - Negative for intestinal metaplasia and dysplasia. E. Upper esophagus, biopsy: - Fragments of benign squamous epithelium. DDF:cml:[id number] GROSS DESCRIPTION: Five specimens are received in five containers, labeled "DP." PATIENT NAME: TRACY BLANK PATHOLOGY DATE OF : 51 REPORT #: [id number] PHYSICIAN: YULI DAVIS PCP: MANDY MARES JR, MD REPORT IS CONFIDENTIAL AND NOT TO BE RELEASED WITHOUT AUTHORIZATION [facility] [address] [place], [place] [address] Signed A. The specimen, labeled "DP, 1," and designated on the requisition "duodenum bulb," is received in formalin and consists of a single zamudio soft tissue fragment that measures 0.3 cm in greatest dimension. The specimen is entirely submitted in cassette (A1). B. The specimen, labeled "DP, 2," and designated on the requisition "antrum/pylorus," is received in formalin and consists of a single zamudio soft tissue fragment that measures 0.3 cm in greatest dimension. The specimen is entirely submitted in cassette (B1). C. The specimen, labeled "DP, 3," and designated on the requisition "gastric polyps," is received in formalin and consists of two zamudio soft tissue fragments that measure 0.5 cm in greatest dimension. The specimen is entirely submitted in cassette (C1). D. The specimen, labeled "DP, 4, and designated on the requisition "GE junction," is received in formalin and consists of a single zamudio soft tissue fragment that measures 0.3 cm in greatest dimension. The specimen is entirely submitted in cassette (D1). E. The specimen, labeled "DP, 5," and designated on the requisition "upper esophagus," is received in formalin and consists of two zamudio soft tissue fragments that measure 0.3 cm in greatest dimension. The specimen is entirely submitted in cassette (E1). AT (under the direct supervision of a pathologist) The Gross Description was prepared using a voice recognition system. The report was reviewed for accuracy; however, sound-alike word errors, addition and/or deletions may occur. If there is any question about this report, please contact Client Services. PERFORMING LABORATORY: The technical component was performed by [facility], [address] [place] [id number] (Core Feeder: Lin Dale MD; CLIA# [id number]). Professional interpretation was performed by [facility], [address] [facility], [place] [address] (CLIA# [id number]). Diagnostician: Bong Muller DO Pathologist Electronically Signed 12/17/2019 Copies: PATIENT NAME: BLANKTRACY PATHOLOGY DATE OF : 51 REPORT #: [id number] PHYSICIAN: YULI DAVIS PCP: MANDY MARES JR, MD REPORT IS CONFIDENTIAL AND NOT TO BE RELEASED WITHOUT AUTHORIZATION [facility] [address] [facility] [place], [place] [address] Signed ~ PATIENT NAME: BLANKTRACY PATHOLOGY DATE OF : 51 REPORT #: [id number] PHYSICIAN: YULI DAVIS PCP: MANDY MARES JR, MD REPORT IS CONFIDENTIAL AND NOT TO BE RELEASED WITHOUT AUTHORIZATION
--- NOTE | 2019-12-17 14:40 | NUR ---
MED REC COMPLETED. PATIENT STATES THAT SHE DOES NOT TAKE ANY ROUTINE MEDICATION.
--- NOTE | 2019-12-17 15:32 | NUR ---
Daughter Brittanie called and updated.
--- NOTE | 2019-12-17 15:59 | NUR ---
TAKEN OUT VIA WC WITH CHARGE NURSE AND PAVER LAYER. STAFF HAD TAKEN PT OUT AT 15:00, BUT FAMILY HAD NOT ARRIVED, AND PT BROUGHT BACK TO UNIT AND PLACED IN ROOM 120, FAMILY ARRIVED AT 16:00. STAFF TOOK PATIENT AND WILL TALK WITH .
== END 2019-12-17 14:00 | disposition home or self-care (01) | DRG 684 ==
LOC: ED 11:10 → MS 14:12
PROVIDERS: Colon & Rectal Surgery; ADMIT Internal Medicine
PROC: 0DB18ZX Excision of Upper Esophagus, Via Natural or Artificial Opening Endoscopic, Diagnostic (ICD-10-PCS; 2019-12-16)
PROC: 0DB48ZX Excision of Esophagogastric Junction, Via Natural or Artificial Opening Endoscopic, Diagnostic (ICD-10-PCS; 2019-12-16)
PROC: 0DB68ZX Excision of Stomach, Via Natural or Artificial Opening Endoscopic, Diagnostic (ICD-10-PCS; 2019-12-16)
PROC: 0DB98ZX Excision of Duodenum, Via Natural or Artificial Opening Endoscopic, Diagnostic (ICD-10-PCS; principal; 2019-12-16 08:45)
DX: N17.9 Acute kidney failure, unspecified (principal); E86.0 Dehydration; R13.13 Dysphagia, pharyngeal phase; E87.6 Hypokalemia; K29.90 Gastroduodenitis, unspecified, without bleeding; K31.7 Polyp of stomach and duodenum; G31.84 Mild cognitive impairment of uncertain or unknown etiology; H81.09 Meniere's disease, unspecified ear; Z79.899 Other long term (current) drug therapy; Z88.1 Allergy status to other antibiotic agents
CPT/HCPCS: 36415; 51701; 70450; 70490; 70551; 71045; 74230; 80048; 80053; 81001; 82533; 82565; 82570; 83735; 84300; 84484; 84520; 84540; 85025; 85651; 86235; 86677; 92610; 93005; 93010; 99285-25; C9113; J0780; J1650; J2405; J2704; J3360; J3480; J7030; J7060; J7120; J7121